=== PATIENT | male | born 1960 | race Caucasian/White ===

== ENCOUNTER 2020-07-14 11:07 | Outpatient (REF) | payer OTHER, SELFPAY ==
[2020-07-14 12:32] LABS: MANUAL DIFF FLAG NO
[2020-07-14 12:40] LABS: Basophils Percent Auto 0.4 % (0-2); Eosinophils Absolute Auto 0.1 X10*3/uL (0.0-0.4); Eosinophils Percent Auto 2.2 % (0-4); Hematocrit 44.6 % (42-52); Hemoglobin 15.2 g/dl (14.0-18.0); Lymphocytes Absolute Auto 1.8 X10*3/uL (1.2-4.9); Lymphocytes Percent Auto 33.6 % (20-40); Mean Corpuscular HGB Conc 34.1 g/dl (31.0-36.0); Mean Corpuscular Hemoglobin 31.1 pg (27.0-33.0); Mean Corpuscular Volume 91.2 fL (80-98); Monocytes Absolute Auto 0.4 X10*3/uL (0.1-1.2); Monocytes Percent Auto 7.5 % (2-11); Neutrophils Percent Auto 56.3 % (45-73); Platelet Count 160 X10*3/uL (160-400); Red Blood Count 4.89 X10*6/uL (4.60-5.80); White Blood Count 5.4 X10*3/uL (4.8-10.8)
[2020-07-14 13:34] LABS: Alanine Aminotransferase 22 U/L (0-40); Albumin Level 4.4 g/dL (3.5-5.0); Alkaline Phosphatase 77 U/L (39-117); Anion Gap 14 (12-20); Aspartate Amino Transferase 31 U/L (5-37); Bilirubin Total 2.4 mg/dL (0.0-1.0); Blood Urea Nitrogen 10 mg/dL (9-16); Calcium 9.5 mg/dL (8.4-10.2); Carbon Dioxide 30 mmol/L (22-29); Chloride 104 mmol/L (96-108); Cholesterol 132 mg/dL; Estimated Glomerular Filt Rate > 60; Glucose Random 109 mg/dL (60-115); HDL Cholesterol 48 mg/dL; LDL Cholesterol Calculated 69 mg/dl; Potassium 4.2 mmol/L (3.3-5.1); Sodium 144 mmol/L (135-145); Total Protein 7.8 g/dL (6.5-8.0); Triglycerides 75 mg/dL
[2020-07-14 13:36] LABS: Microalbum/Creatinine Ratio Ur 9.4 ug/mg cr
[2020-07-14 13:57] LABS: Free T4 (Free Thyroxine) 0.88 ng/dL (0.71-1.85); Prostate Specific Antigen Scr 0.31 ng/mL (<0.05-4.0); Thyroid Stimulating Hormone 1.14 uIU/mL (0.32-4.0)
== END 2020-07-14 11:08 | disposition home or self-care (01) ==
LOC: HO.LAB 11:07
PROVIDERS: PCP Internal Medicine; Visit Provider Internal Medicine
DX: E11.65 Type 2 diabetes mellitus with hyperglycemia (principal); I10 Essential (primary) hypertension; E78.00 Pure hypercholesterolemia, unspecified; Z12.5 Encounter for screening for malignant neoplasm of prostate
CPT/HCPCS: 36415; 80053; 80061; 82043; 84153; 84439; 84443; 85025

== ENCOUNTER → 2021-07-07 12:29 | Outpatient (REF) | payer OTHER, SELFPAY ==
--- NOTE | 2021-07-07 12:34 | CA_ITS ---
Transthoracic Echocardiogram Patient (Last, First, Middle): Justo Osborne R Gender: Male Date of : 1960 Age: 60 Procedure Date: 07/07/2021 Procedure Type: Transthoracic Echocardiogram Location: OP Height: 175.26 cm Weight: 88.45 kg BSA: 2.04 m2 Heart Rate: bpm BP: 150 / 88 mmHg Rewriter: LUIS Referring MD: Rashad Ellison MD Refresh Technician: Jermey Land MD Symptoms: I10 - Essential (primary) hypertension Study Quality: Fair/Contrast ECG Rhythm: Sinus Conclusions: - 1. Normal LV systolic function with grade 1 diastolic dysfunction 2. Mildly dilated left atrium 3. Mild pulmonic stenosis 4. Normal RV systolic pressure 5. No pericardial effusion Findings Procedure Information Contrast agent, definity, is being given per protocol without apparent complications. Left Ventricle Normal left ventricular size, thickness, and systolic function. The visually estimated ejection fraction is between 60-65%. Spectral Doppler is indicative of an impaired relaxation filling pattern. E/E prime ratio is <8, consistent with normal filling pressures. Evidence suggests grade I (mild) diastolic dysfunction. Right Ventricle Normal right ventricular cavity size and systolic function. Atria The left atrium is mildly dilated. There is no evidence of interatrial shunt. The right atrium is normal in size. Aortic Valve There is mild calcification of the aortic valve. There is no aortic valve stenosis. There is no aortic valve regurgitation. Mitral Valve There is mild anterior and posterior mitral leaflet thickening. There is mild mitral annular calcification. There is trace mitral valve regurgitation. There is no mitral valve stenosis. Pulmonic Valve The pulmonic valve was not well visualized. There is mild thickening of the pulmonic valve. There is no pulmonic valve regurgitation. Tricuspid Valve Likely normal tricuspid valve structure and function. There is mild tricuspid valve regurgitation. The right ventricular systolic pressure is normal. The right ventricular systolic pressure is 18 mmHg. Normal right atrial pressure. There is no evidence of pulmonary hypertension. Great Vessels All visible segments of the aorta are normal in size. The pulmonary artery was not well visualized. Venous The inferior vena cava is normal in size and collapses greater than 50% with inspiration. Pericardium/Pleural There is no evidence of pericardial effusion. Prior Study Comparison No prior study available for comparison. Measurements 2D Linear Measurements IVSd: 0.91 0.6-0.9/0.6-1.0 cm LVIDd: 4.88 3.9-5.3/4.2-5.9 cm LVIDd Index: 2.39 2.4-3.2/2.2-3.1 cm/m2 LVIDs: 2.71 2.0-3.6 cm LVPWd: 0.96 0.7-1.1 cm Ao Root: 2.90 2.1-3.5 cm LA Diam: 3.90 2.7-3.8/3.0-4.0 cm LAIDs Index: 1.91 1.5-2.3 cm/m2 LV Mass: 199.13 67-162/88-224 g LV Mass Index: 97.61 43-95/49-115 g/m2 LVOT Diam: 2.10 3.0+(-)1.3 cm 2D Systolic Function EF 4C: 66.40 >55% EF 2C: 64.50 >55% EF BiP: 65.40 >55% Mitral Valve MV Pk E: 0.65 MV PK A: 0.68 MV Decel Time: 237.00 E/A: 1.00 E'Lateral: 7.94 E'Medial: 7.29 E/E' Med: 9.00 E/E' Lat: 8.20 PHT: 70.00 MVA PHT: 3.14 Decel [place]: 2.75 Aortic Valve AoV Pk Onel: 1.59 AoV Mn Onel: 1.19 AoV VTI: 0.36 AoV Pk Grad: 10.00 Aov Mn Grad: 6.00 RANDY Cont.VTI: 2.73 LVOT LVOT Pk Onel: 1.23 LVOT Mn Onel: 0.82 LVOT VTI: 0.28 LVOT Pk Grad: 6.00 LVOT Mn Grad: 3.00 LVOT Diam: 2.10 LVOT Area: 3.46 Diastolic Function MV Pk E: 0.65 MV Pk A: 0.68 E/A: 1.00 E'Medial: 7.29 E/E' Med: 9.00 E' Laterial: 7.94 E/E' Lat: 8.20 Right Ventricle TAPSE (mm): 2.23 TVS' Onel: 12.70 Tricuspid Valve TR Pk Onel: 1.91 TR Pk Grad: 15.00 RA Press: 3.00 RVSP: 18.00 Great Vessels Aorta Ao Root-2D: 2.90 2.0-3.7 cm Ao Asc: 3.60 2.1-3.4 cm Ao Arch: 2.50 Pulmonary Valve PV Pk Onel: 2.24 PV Min Onel: 1.36 Peak PV Grad: 20.00 PV Mn Grad: 9.00 Shunting QP:QS: 0.80 Updated in Other Vendor System with Status of Final Jeremy Land MD electronically signed on 07/07/2021 5:38:47 PM with status of Final
== END | disposition home or self-care (01) ==
LOC: HO.CARD 12:29
PROVIDERS: PCP Internal Medicine; Visit Provider Internal Medicine
DX: I10 Essential (primary) hypertension (principal); G47.33 Obstructive sleep apnea (adult) (pediatric)
CPT/HCPCS: 93306; Q9957

== ENCOUNTER 2021-08-04 10:55 | Outpatient (REF) | payer OTHER, SELFPAY ==
[2021-08-04 11:14] LABS: MANUAL DIFF FLAG NO
[2021-08-04 11:38] LABS: Basophils Percent Auto 0.4 % (0-2); Eosinophils Absolute Auto 0.2 X10*3/uL (0.0-0.4); Eosinophils Percent Auto 3.4 % (0-4); Hematocrit 42.7 % (42.0-52.0); Hemoglobin 14.9 g/dl (14.0-18.0); Imm Gran Abs Auto 0.01 X10*3/uL (0.00-0.03); Imm Gran Pct Auto 0.2 % (0.0-0.4); Lymphocytes Absolute Auto 1.6 X10*3/uL (1.2-4.9); Lymphocytes Percent Auto 29.2 % (20-40); Mean Corpuscular HGB Conc 34.9 g/dl (31.0-36.0); Mean Corpuscular Hemoglobin 32.3 pg (27.0-33.0); Mean Corpuscular Volume 92.4 fL (80.0-98.0); Mean Platelet Volume 10.5 fL (9.4-12.4); Monocytes Absolute Auto 0.4 X10*3/uL (0.1-1.2); Monocytes Percent Auto 7.7 % (2-11); Neutrophils Absolute Auto 3.1 x10*3/uL (2.0-8.3); Neutrophils Percent Auto 59.1 % (45-73); Platelet Count 156 X10*3/uL (160-400); Red Blood Count 4.62 X10*6/uL (4.60-5.80); Red Cell Distribution Width 12.4 % (11.0-16.0); White Blood Count 5.3 X10*3/uL (4.8-10.8)
[2021-08-04 12:02] LABS: Estimated Average Glucose 120 mg/dL; Hemoglobin A1c % 5.8 %
[2021-08-04 12:07] LABS: Alanine Aminotransferase 31 U/L (0-40); Albumin Level 4.3 g/dL (3.5-5.0); Alkaline Phosphatase 71 U/L (39-117); Anion Gap 12 (12-20); Aspartate Amino Transferase 30 U/L (5-37); Bilirubin Total 2.7 mg/dL (0.0-1.0); Blood Urea Nitrogen 9 mg/dL (9-16); Calcium 9.8 mg/dL (8.4-10.2); Carbon Dioxide 30 mmol/L (22-29); Chloride 104 mmol/L (96-108); Cholesterol 124 mg/dL; Estimated Glomerular Filt Rate > 60; Glucose Random 117 mg/dL (60-115); HDL Cholesterol 41 mg/dL; LDL Cholesterol Calculated 67 mg/dl; Potassium 3.7 mmol/L (3.3-5.1); Sodium 142 mmol/L (135-145); Total Protein 7.3 g/dL (6.5-8.0); Triglycerides 84 mg/dL
[2021-08-04 12:19] LABS: Free T4 (Free Thyroxine) 0.94 ng/dL (0.71-1.85); Prostate Specific Antigen Scr 0.87 ng/mL (<0.05-4.0); Thyroid Stimulating Hormone 0.85 uIU/mL (0.32-4.0)
[2021-08-04 12:49] LABS: Folate 17.1 ng/mL (> or = 4.0); Vitamin B12 796 pg/mL (200-900)
[2021-08-04 12:50] LABS: Creatinine Urine 292.85 mg/dL; Microalbum/Creatinine Ratio Ur 12.6 ug/mg cr
== END 2021-08-04 10:56 | disposition home or self-care (01) ==
LOC: HO.LAB 10:55
PROVIDERS: PCP Internal Medicine; Visit Provider Internal Medicine
DX: Z12.5 Encounter for screening for malignant neoplasm of prostate (principal); E11.65 Type 2 diabetes mellitus with hyperglycemia; E78.00 Pure hypercholesterolemia, unspecified
CPT/HCPCS: 36415; 80053; 80061; 82043; 82607; 82746; 83036; 84153; 84439; 84443; 85025

== ENCOUNTER 2021-10-19 12:11 | Outpatient (REF) | payer OTHER, SELFPAY ==
[2021-10-19 13:14] LABS: Hematocrit 43.5 % (42.0-52.0); Hemoglobin 15.1 g/dl (14.0-18.0); Mean Corpuscular HGB Conc 34.7 g/dl (31.0-36.0); Mean Corpuscular Hemoglobin 31.7 pg (27.0-33.0); Mean Corpuscular Volume 91.2 fL (80.0-98.0); Platelet Count 155 X10*3/uL (160-400); Red Blood Count 4.77 X10*6/uL (4.60-5.80); Red Cell Distribution Width 13.8 % (11.0-16.0); White Blood Count 5.1 X10*3/uL (4.8-10.8)
[2021-10-19 13:15] LABS: INTERNATIONAL NORM RATIO 1.2 (0.9-1.1); Prothrombin Time 13.5 SEC (9.9-13.0)
[2021-10-19 13:48] LABS: Alanine Aminotransferase 33 U/L (0-40); Albumin Level 4.4 g/dL (3.5-5.0); Alkaline Phosphatase 72 U/L (39-117); Aspartate Amino Transferase 36 U/L (5-37); Bilirubin Direct 0.7 mg/dL (0.0-0.5); Bilirubin Total 1.8 mg/dL (0.0-1.0); Total Protein 7.6 g/dL (6.5-8.0)
== END 2021-10-19 12:12 | disposition home or self-care (01) ==
LOC: HO.LAB 12:11
PROVIDERS: PCP Internal Medicine; Visit Provider Internal Medicine Gastroenterology
DX: K74.60 Unspecified cirrhosis of liver (principal)
CPT/HCPCS: 36415; 80076; 85027; 85610

== ENCOUNTER 2021-10-28 10:38 | Day surgery (SDC) | payer OTHER, SELFPAY ==
[2021-10-24 13:31] VITALS: BMI 33.1
--- NOTE | 2021-10-26 12:08 | HO.ANESPROP2 ---
Documented by User: Bette Gallo NP 10/26/21 12:12 HPI - Anesthesia Eval Consult details Narrative: 61yo M for Upper Endoscopy and Colonoscopy [facility] Active Problems Active Problems: All Active Problems (Updated 10/24/21 @ 13:33 by Yumiko Carver RN) Annual physical exam (Acute) Obstructive sleep apnea (Acute) Hypertension (Acute) Hypercholesterolemia (Acute) Obesity (BMI 30-39.9) (Acute) Type 2 diabetes mellitus with hyperglycemia (Acute) Past Medical History Medical History Alcohol abuse Cholelithiasis Cirrhosis Fatty liver Hypercholesterolemia Hypertension Obesity (BMI 30-39.9) Obstructive sleep apnea Type 2 diabetes mellitus with hyperglycemia Family History Family History (Updated 05/03/21 @ 15:11 by Rashad Ellison MD) Father Gastric cancer Mother Intestinal cancer Paternal Aunt Glioma Paternal Grandmother Liver cancer Surgical History Surgical History H/O colonoscopy History of cholecystectomy History of inguinal hernia repair History of tooth extraction Social History Social History (Updated 05/03/21 @ 15:12 by Rashad Ellison MD) Housing: House Alcohol intake: current Patient Tobacco Use Status: Former Tobacco user Quit Date: 1996 Tobacco use type: Cigarette Years Smoked: quit 1992 e-Cigarette/Vaping Use: Never Used Second Hand Smoke Exposure: No Use of substances other than those prescribed or required for medical reasons: Yes Substance Use Frequency: Daily Are you DNR?: No Advance Directives: No Advance Directives Information Provided: Yes Current occupational status: employed Meds Allergies Allergy/AdvReac Type Severity Reaction Status Date / Time amlodipine [AMLODIPINE] Allergy Intermediate SWELLING Verified 10/28/21 11:25 lisinopril [LISINOPRIL] AdvReac Intermediate Cough Verified 10/28/21 11:25 Home Medications Medication Instructions Recorded Confirmed Last Taken Type aspirin 81 mg tablet,delayed 81 mg PO DAILY 04/16/20 10/24/21 10/20/21 History release (Adult Aspirin Regimen) cholecalciferol (vitamin D3) 50 50 mcg PO DAILY 04/16/20 10/24/21 Unknown History mcg (2,000 unit) capsule multivitamin 1 tab PO DAILY 04/16/20 10/24/21 Unknown History Exam Exam Date and Time: October 26, 2021 1208 Height,Weight and Vital Signs: Height 5 ft 9 in Weight 101.831 kg Pertinent Lab Results Pertinent Lab Results: Laboratory Tests 08/04/21 10/19/21 11:12 12:25 WBC 5.1 Hgb 15.1 Hct 43.5 Plt Count 155 L Sodium 142 Potassium 3.7 Chloride 104 Carbon Dioxide 30 H BUN 9 Creatinine 0.78 Narrative Narrative: ECHO 06/2021 Conclusions: - 1.? Normal LV systolic function with grade 1 diastolic ? dysfunction? 2. Mildly dilated left atrium? 3. Mild pulmonic stenosis? 4.? Normal RV systolic pressure? 5. No pericardial effusion ? ? ? Assessment and Plan Assessment Anesthesia Assessment: Chart Reviewed Documented by User: Janna Torres MD 10/28/21 12:19 PMFSH Past Medical History Medical History Alcohol abuse Cholelithiasis Cirrhosis Fatty liver Hypercholesterolemia Hypertension Obesity (BMI 30-39.9) Obstructive sleep apnea Type 2 diabetes mellitus with hyperglycemia Family History Family History (Updated 05/03/21 @ 15:11 by Rashad Ellison MD) Father Gastric cancer Mother Intestinal cancer Paternal Aunt Glioma Paternal Grandmother Liver cancer Family history of problems with anesthesia: No Surgical History Surgical History H/O colonoscopy History of cholecystectomy History of inguinal hernia repair History of tooth extraction History of Problems with Anesthesia: No Social History Social History (Updated 05/03/21 @ 15:12 by Rashad Ellison MD) Housing: House Alcohol intake: current Patient Tobacco Use Status: Former Tobacco user Quit Date: 1996 Tobacco use type: Cigarette Years Smoked: quit 1992 e-Cigarette/Vaping Use: Never Used Second Hand Smoke Exposure: No Use of substances other than those prescribed or required for medical reasons: Yes Substance Use Frequency: Daily Are you DNR?: No Advance Directives: No Advance Directives Information Provided: Yes Current occupational status: employed Meds Allergies Allergy/AdvReac Type Severity Reaction Status Date / Time amlodipine [AMLODIPINE] Allergy Intermediate SWELLING Verified 10/28/21 11:25 lisinopril [LISINOPRIL] AdvReac Intermediate Cough Verified 10/28/21 11:25 Home Medications Medication Instructions Recorded Confirmed Last Taken Type aspirin 81 mg tablet,delayed 81 mg PO DAILY 04/16/20 10/24/21 10/20/21 History release (Adult Aspirin Regimen) cholecalciferol (vitamin D3) 50 50 mcg PO DAILY 04/16/20 10/24/21 Unknown History mcg (2,000 unit) capsule multivitamin 1 tab PO DAILY 04/16/20 10/24/21 Unknown History Exam Airway Mallampati Class: II TM Dist: >3cm Neck ROM: Full Denture: Upper Heart: rrr Lungs: cta Assessment and Plan Assessment Anesthesia Assessment: Anesthesia Plan Discussed and Chart Reviewed Final Anesthetic Review Family History of Problems with Anesthesia: No History of Problems with Anesthesia: No NPO: Yes ASA Class: III Final Preanesthetic Review: No Changes in Pt Med Stat, Meds/Allgs Chart Reviewed and Consent Obtained/Reviewed Patient Risk: Intermediate Procedure Risk: Intermediate Anesthetic Plan Anesthetic Plan: MAC: Disposition: Standard PACU
[2021-10-28 11:27] VITALS: BP 136/71; PULSE 61; RESP 16; TEMP 36.7; O2SAT 96
[2021-10-28 11:27] LABS: Glucose, Whole Blood 91 mg/dL (60-115)
[2021-10-28] MEDS: Lactated Ringers 1,000 ML 100 ML IVCONT (11:45)
--- NOTE | 2021-10-28 12:23 | MHC.SHP ---
Pre-Procedural Eval Section A Date of Service: 10/28/21 The patient is an INPATIENT: No Changes since office visit: No Cold of Flu in the past 2 weeks, No New Medical Problems, No Changes in Medication and No Patient answered all questions The History & Physical has been completed within 30 days and I have reviewed it.: Yes Section B Chief Complaint: screening,cirrhosis of liver Allergies: Allergies Allergy/AdvReac Type Severity Reaction Status Date / Time amlodipine [AMLODIPINE] Allergy Intermediate SWELLING Verified 10/28/21 11:25 lisinopril [LISINOPRIL] AdvReac Intermediate Cough Verified 10/28/21 11:25 Plan I have reviewed the history and physical and performed a pertinent physical examination on my patient. No changes have occurred unless specified.
[2021-10-28 13:20] VITALS: BP 110/59; PULSE 54; RESP 12; TEMP 36.2; O2SAT 99
--- NOTE | 2021-10-28 13:24 | P.BOP_ITS ---
Brief Operative Note Date of Service: 10/28/21 Pre-op diagnosis: cirrhosis,screening Post-op diagnosis: same (colon polyps) Procedure: egd,colon Surgeon: Tony Olmstead Anesthesia: MAC Was an Assault Boat Coxswain used for this Procedure?: No Estimated blood loss (mL): 5 Pathology: other Condition: stable Disposition: PACU
[2021-10-28 13:35] VITALS: BP 119/65; PULSE 65; RESP 18; O2SAT 97
[2021-10-28 13:50] VITALS: BP 140/77; PULSE 67; RESP 18; TEMP 36.7; O2SAT 98
--- NOTE | 2021-10-28 21:56 | OP_ITS ---
SURGEON: Tony Olmstead MD INDICATIONS: 1. Cirrhosis. 2. Colon cancer screening. PREOPERATIVE DIAGNOSIS: POSTOPERATIVE DIAGNOSIS: PROCEDURE PERFORMED: Upper endoscopy with biopsy, colonoscopy to the terminal ileum with biopsy and snare polypectomy. ESTIMATED BLOOD LOSS: COMPLICATIONS: ANESTHESIA: ASSISTANTS: SPECIMENS: MEDICATIONS: Monitored anesthesia care. DESCRIPTION OF PROCEDURE: History and physical were performed. The risks and benefits of the procedure were explained to the patient. Informed consent was obtained. The patient was placed in the left lateral decubitus position. The Olympus video gastroscope was introduced into the esophagus, stomach, and duodenum. Examination was performed. The scope was removed. He was repositioned for colonoscopy. Digital rectal exam was performed and was found to be normal. The Olympus pediatric video colonoscope was introduced into the rectum and advanced to the cecum without difficulty. The cecum was identified by transillumination, palpation, and identification of ileocecal valve. Examination was performed. The scope was removed. He tolerated both procedures well and was returned to recovery area in stable condition. FINDINGS: UPPER ENDOSCOPY: Esophagus: The esophagus was normal. There were no varices. There was no esophagitis. Stomach: The stomach showed no evidence of masses, ulcers, or polyps. There was no portal hypertensive gastropathy for gastric varices. On retroflex view antral biopsies were obtained to evaluate for H pylori. Duodenum: The bulb and second portion were normal. COLONOSCOPY: The terminal ileum was examined and appeared normal. The visualized mucosa was within normal limits without evidence of masses or ulcers. Two polyps were identified and removed. The 1st in the cecum measured 5 mm and was removed with biopsy forceps. The 2nd at 40 cm was 10 mm was removed with a snare. No other polyps were identified. There was mild sigmoid diverticulosis. Retroflexed examination was normal. IMPRESSION: 1. Normal upper endoscopy. 2. Colon polyps. RECOMMENDATION: Follow up the biopsy results. MD TADEO Delgado/MODL / [id number]
== END 2021-10-28 14:35 | disposition home or self-care (01) ==
PROVIDERS: PCP Internal Medicine; Visit Provider Internal Medicine Gastroenterology
PROC: (CPT 45385; principal; 2021-10-28 11:20)
DX: Z12.11 Encounter for screening for malignant neoplasm of colon (principal); Z83.71 Family history of colonic polyps; D12.0 Benign neoplasm of cecum; D12.5 Benign neoplasm of sigmoid colon; K74.60 Unspecified cirrhosis of liver; Z80.0 Family history of malignant neoplasm of digestive organs; I10 Essential (primary) hypertension; E78.00 Pure hypercholesterolemia, unspecified; E11.65 Type 2 diabetes mellitus with hyperglycemia; G47.33 Obstructive sleep apnea (adult) (pediatric); Z79.82 Long term (current) use of aspirin; Z79.899 Other long term (current) drug therapy; Z88.8 Allergy status to other drugs, medicaments and biological substances; Z87.891 Personal history of nicotine dependence; Z90.49 Acquired absence of other specified parts of digestive tract
CPT/HCPCS: 45385; 45380; 43239; 82947; 88305; 88342

== ENCOUNTER 2023-01-10 10:50 | Outpatient (REF) | payer OTHER, SELFPAY ==
[2023-01-10 11:06] LABS: MANUAL DIFF FLAG NO
[2023-01-10 11:51] LABS: Basophils Percent Auto 0.4 % (0-2); Eosinophils Absolute Auto 0.2 X10*3/uL (0.0-0.4); Eosinophils Percent Auto 2.7 % (0-4); Hematocrit 42.7 % (42.0-52.0); Hemoglobin 14.6 g/dl (14.0-18.0); Imm Gran Abs Auto 0.02 X10*3/uL (0.00-0.03); Imm Gran Pct Auto 0.3 % (0.0-0.4); Lymphocytes Absolute Auto 1.6 X10*3/uL (1.2-4.9); Lymphocytes Percent Auto 21.3 % (20-40); Mean Corpuscular HGB Conc 34.2 g/dl (31.0-36.0); Mean Corpuscular Hemoglobin 30.5 pg (27.0-33.0); Mean Corpuscular Volume 89.1 fL (80.0-98.0); Mean Platelet Volume 10.7 fL (9.4-12.4); Monocytes Absolute Auto 0.5 X10*3/uL (0.1-1.2); Monocytes Percent Auto 6.3 % (2-11); Platelet Count 163 X10*3/uL (160-400); Red Blood Count 4.79 X10*6/uL (4.60-5.80); Red Cell Distribution Width 13.5 % (11.0-16.0); White Blood Count 7.3 X10*3/uL (4.8-10.8)
[2023-01-10 12:01] LABS: Estimated Average Glucose 114 mg/dL; Hemoglobin A1c % 5.6 %
[2023-01-10 12:21] LABS: Creatinine Urine 125.18 mg/dL; Microalbum/Creatinine Ratio Ur 15.9 ug/mg cr
[2023-01-10 12:35] LABS: Alanine Aminotransferase 20 U/L (0-40); Albumin Level 4.1 g/dL (3.5-5.0); Alkaline Phosphatase 65 U/L (39-117); Anion Gap 15 (12-20); Aspartate Amino Transferase 20 U/L (5-37); Bilirubin Total 1.7 mg/dL (0.0-1.0); Blood Urea Nitrogen 6 mg/dL (9-16); Calcium 9.5 mg/dL (8.4-10.2); Carbon Dioxide 24 mmol/L (22-29); Chloride 108 mmol/L (96-108); Cholesterol 164 mg/dL; Estimated Glomerular Filt Rate > 60; Glucose Fasting 124 mg/dL (60-99); HDL Cholesterol 46 mg/dL; LDL Cholesterol Calculated 95 mg/dl; Potassium 3.8 mmol/L (3.3-5.1); Sodium 143 mmol/L (135-145); Total Protein 7.1 g/dL (6.5-8.0); Triglycerides 116 mg/dL
[2023-01-10 12:42] LABS: TSH reflex Free T4 1.47 uIU/mL (0.32-4.0); Vitamin D 25-OH Total 28.1 ng/mL (>30)
[2023-01-10 13:12] LABS: Folate 17.1 ng/mL (> or = 4.0); Prostate Specific Antigen 0.58 ng/mL (<0.05-4.0); Vitamin B12 831 pg/mL (200-900)
== END 2023-01-10 10:51 | disposition home or self-care (01) ==
LOC: HO.LAB 10:50
PROVIDERS: PCP Internal Medicine; Visit Provider Nurse Practitioner Family
DX: Z00.00 Encounter for general adult medical examination without abnormal findings (principal); E11.65 Type 2 diabetes mellitus with hyperglycemia; E78.00 Pure hypercholesterolemia, unspecified; Z12.5 Encounter for screening for malignant neoplasm of prostate; E55.9 Vitamin D deficiency, unspecified
CPT/HCPCS: 36415; 80053; 80061; 82043; 82306; 82607; 82746; 83036; 84153; 84443; 85025

== ENCOUNTER 2023-01-15 10:25 | Outpatient (AMB) | payer OTHER, SELFPAY ==
[2023-01-15 10:43] VITALS: BP 152/88; PULSE 83; O2SAT 98; BMI 31.6
--- NOTE | 2023-01-15 10:43 | MHC.PC.OV ---
Vital Signs 01/15/23 10:43 Height 5 ft 9 in Weight 214 lb BMI 31.6 BP 152/88 H Blood Pressure Location Lt brachial Position Sitting Pulse 83 Pulse Source Pulse Oximeter Pulse Oximetry (%) 98 Oxygen Delivery Method Room Air Intake Visit Reasons: F/U Allergies amlodipine [AMLODIPINE] Allergy (Intermediate, Verified 01/15/23 10:44) SWELLING lisinopril [LISINOPRIL] Adverse Reaction (Intermediate, Verified 01/15/23 10:44) Cough Medication List - Last Reconciled 01/15/23 by Rashad Ellison MD hydrochlorothiazide 25 mg PO DAILY 90 days metoprolol succinate ER 100 mg PO DAILY multivitamin 1 tab PO DAILY simvastatin 40 mg PO QPM Tobacco use date assessed: 07/20/22 Dental Screening Dental Screen Date: 01/15/23 Did you have a dental visit in the last 12 months?: Yes Did you have a dental problem in the last 6 months where you did not have access to dental care?: No Was dental information given to patient?: Patient has dentist HPI F/U HPI Details 62-year-old obese male with diabetes mellitus hypertension hypercholesterolemia last seen in August 2021. Patient is up-to-date with colonoscopy. Patient does follow-up with the nurse practitioner and was last seen in July for physical exam [facility] Medical History (Updated 01/15/23 @ 11:21 by Rashad Ellison MD) Alcohol abuse Cholelithiasis Cirrhosis Fatty liver Hypercholesterolemia Hypertension Obesity (BMI 30-39.9) Obstructive sleep apnea Type 2 diabetes mellitus with hyperglycemia Surgical History (Updated 07/20/22 @ 16:16 by LINUS Corbett) H/O colonoscopy History of cholecystectomy History of inguinal hernia repair History of tooth extraction Family History (Updated 01/15/23 @ 10:44 by Karely Pink CMA) Father Gastric cancer Mother Intestinal cancer Paternal Aunt Glioma Paternal Grandmother Liver cancer Social History Housing: House Alcohol intake: current Patient Tobacco Use Status: Former Tobacco user Quit Date: 1996 Tobacco use type: Cigarette Years Smoked: quit 1992 e-Cigarette/Vaping Use: Never Used Second Hand Smoke Exposure: No Current occupational status: employed Cognitive needs: No Hearing needs: No Vision needs: No Questionnaire PHQ-9 Over the last 2 weeks, how often have you been bothered by any of the following problems? 1. Little interest or pleasure in doing things: not at all 2. Feeling down, depressed, or hopeless: not at all 3. Trouble falling or staying asleep, or sleeping too much: not at all 4. Feeling tired or having little energy: not at all 5. Poor appetite or overeating: not at all 6. Feeling bad about yourself - or that you are a failure or have let yourself or your family down: not at all 7. Trouble concentrating on things, such as reading the newspaper or watching television: not at all 8. Moving or speaking so slowly that other people could have noticed. Or the opposite - being so fidgety or restless that you have been moving around a lot more than usual: not at all 9. Thoughts that you would be better off or of hurting yourself in some way: not at all Total score: 0 Depression Screening Interpretation: Negative 35698 - PHQ-9 Billing: Yes Source: Developed by Drs. Nikunj Ramon, Simin Morgan, Yung Ha and colleagues, with an educational mustapha from [employer]. Thrive Questionnaire Date Thrive assessed: 07/20/22 AUDIT C Alcohol Use Questionnaire (AUDIT-C) 1. How often do you have a drink containing alcohol?: Never 2. How many drinks containing alcohol do you have on a typical day when you are drinking?: 1 or 2 3. How often do you have six or more drinks on one occasion?: Never Total Score: 0 Score Reviewed/Action Taken: No MOSHE-7 AMB Questionnaire MOSHE-7 Date MOSHE - 7 assessed: 07/20/22 Source: Developed by Drs. Nikunj Ramon, Simin Morgan, Yung Ha and colleagues, with an educational mustapha from [employer]. Physical exam (Primary Care) Vital Signs: Last Vital Signs Pulse 83 01/15/23 10:43 BP 152/88 H 01/15/23 10:43 Pulse Ox 98 01/15/23 10:43 Oxygen Delivery Method Room Air 01/15/23 10:43 BMI result Body Mass Index 31.6 Tobacco/Smoking Status: Tobacco use Status Tobacco use date assessed 07/20/22 01/15/23 10:48 Patient Tobacco Use Status Former Tobacco user 01/15/23 10:48 Tobacco use type Cigarette 01/15/23 10:48 e-Cigarette/Vaping Use Never Used 01/15/23 10:48 PHQ-9: PHQ-9 Score PHQ-9: Total score 0 01/15/23 11:09 Depression Screening Interpretation: Negative Thrive Assessment: Date of Thrive Assessment Date Thrive assessed 07/20/22 01/15/23 10:48 Const General: alert; No acute distress Eyes Conjunctivae: conjunctivae normal Resp Auscultation: clear to auscultation bilaterally Cardio Rate: regular rate Rhythm: regular rhythm GI Inspection: Yes normal to inspection Extrem General: Yes normal to inspection and No edema Assessment and Plan Assessment & Plan (1) Type 2 diabetes mellitus with hyperglycemia: Comment: reminded eye exam Dr. Wheeler Code(s): E11.65 - Type 2 diabetes mellitus with hyperglycemia Qualifiers: Diabetes mellitus correction insulin use: without director long term care use Qualified Code(s): E11.65 - Type 2 diabetes mellitus with hyperglycemia Plan: Decrease the amount of carbohydrate intake, pasta, bread, rice and potatoes are all sugar and that is aside from all the sweet stuff, remember that fruits are good but they are Sweet also. Hemoglobin A1c goal of less than 6.5 patient is diet controlled. Reminded about the exam (2) Obesity (BMI 30-39.9): Code(s): E66.9 - Obesity, unspecified Plan: Diet and exercise (3) Hypercholesterolemia: Code(s): E78.00 - Pure hypercholesterolemia, unspecified Plan: Avoid fried foods, chicken skin, eggs, butter margarine, pastries and meat. Be it pork or beef they have a lot of cholesterol patient is on simvastatin 40 mg at bedtime LDL goal of less than 100 and triglyceride of less than 150 (4) Hypertension: Code(s): I10 - Essential (primary) hypertension Qualifiers: Hypertension type: essential hypertension Qualified Code(s): I10 - Essential (primary) hypertension Plan: Continue with blood pressure medication. Decrease salt intake and exercise patient is on metoprolol 100 mg once a day and hydrochlorothiazide 25 mg once a day. Concern about elevated blood pressure today advised to monitor and will follow-up in 3 month Coding Level of Care Code Est Pt Level 4 (87311) Diagnoses Type 2 diabetes mellitus with hyperglycemia E11.65 Diabetes mellitus director long term care insulin use: without correction use Obesity (BMI 30-39.9) E66.9 Hypercholesterolemia E78.00 Hypertension I10 Hypertension type: essential hypertension
== END 2023-01-15 11:36 | disposition home or self-care (01) ==
PROVIDERS: PCP Internal Medicine; Visit Provider Internal Medicine
DX: E11.65 Type 2 diabetes mellitus with hyperglycemia (principal); E66.9 Obesity, unspecified; Z68.31 Body mass index [BMI] 31.0-31.9, adult; Z23 Encounter for immunization; I10 Essential (primary) hypertension; E78.00 Pure hypercholesterolemia, unspecified
CPT/HCPCS: 90471; 90714; 99214

== ENCOUNTER 2023-04-23 11:01 | Outpatient (AMB) | payer OTHER, SELFPAY ==
--- NOTE | 2023-04-23 11:20 | A.OFFPC_ITS ---
Vital Signs 04/23/23 11:21 Height 5 ft 9 in Weight 205 lb 8 oz BMI 30.3 BP 148/72 H Blood Pressure Location Lt brachial Position Sitting Respiration 17 Pulse 62 Pulse Source Pulse Oximeter Pulse Oximetry (%) 98 Oxygen Delivery Method Room Air Intake Visit Reasons: HTN, DM Intake Note: Pt here for HTN and DMII F/U. 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 Accompanied by: Self / Same As Patient Allergies amlodipine [AMLODIPINE] Allergy (Intermediate, Verified 04/23/23 11:24) SWELLING lisinopril [LISINOPRIL] Adverse Reaction (Intermediate, Verified 04/23/23 11:24) Cough Medication List - Last Reconciled 04/23/23 by Rashad Ellison MD cholecalciferol (vitamin D3) 25 mcg PO DAILY losartan-hydrochlorothiazide 50-12.5 mg 1 tab PO DAILY metoprolol succinate ER 100 mg PO DAILY multivitamin 1 tab PO DAILY simvastatin 40 mg PO QPM Tobacco use date assessed: 07/20/22 Dental Screening Dental Screen Date: 04/23/23 Did you have a dental visit in the last 12 months?: Yes Did you have a dental problem in the last 6 months where you did not have access to dental care?: No Was dental information given to patient?: Patient has dentist HPI HTN, DM HPI Details 62-year-old obese male with controlled d iabetes mellitus hypercholest erolemia hypertension last seen in January 2023. Patient's colonoscopy is up-to-date. [facility] Medical History (Updated 01/18/23 @ 13:18 by LINUS Corbett) Cirrhosis Cholelithiasis Obstructive sleep apnea Hypertension Hypercholesterolemia Obesity (BMI 30-39.9) Fatty liver Alcohol abuse Type 2 diabetes mellitus with hyperglycemia Surgical History H/O colonoscopy History of cholecystectomy History of tooth extraction History of inguinal hernia repair Family History Father Gastric cancer Mother Intestinal cancer Paternal Aunt Glioma Paternal Grandmother Liver cancer Social History Housing: House Alcohol intake: current Patient Tobacco Use Status: Former Tobacco user Quit Date: 1996 Tobacco use type: Cigarette Years Smoked: quit 1992 e-Cigarette/Vaping Use: Never Used Second Hand Smoke Exposure: No Current occupational status: employed Cognitive needs: No Hearing needs: No Vision needs: No Questionnaire Thrive Questionnaire Date Thrive assessed: 07/20/22 MOSHE-7 AMB Questionnaire MOSHE-7 Date MOSHE - 7 assessed: 07/20/22 Source: Developed by Drs. Nikunj Ramon, Simin Morgan, Yung Ha and colleagues, with an educational mustapha from [email or web address]. Physical exam (Primary Care) Vital Signs: Last Vital Signs Pulse 62 04/23/23 11:21 Resp 17 04/23/23 11:21 BP 148/72 H 04/23/23 11:21 Pulse Ox 98 04/23/23 11:21 Oxygen Delivery Method Room Air 04/23/23 11:21 BMI result Body Mass Index 30.3 Tobacco/Smoking Status: Tobacco use Status Tobacco use date assessed 07/20/22 04/23/23 11:23 Patient Tobacco Use Status Former Tobacco user 04/23/23 11:23 Tobacco use type Cigarette 04/23/23 11:23 e-Cigarette/Vaping Use Never Used 04/23/23 11:23 Thrive Assessment: Date of Thrive Assessment Date Thrive assessed 07/20/22 04/23/23 11:23 Const General: alert; No acute distress Eyes Conjunctivae: conjunctivae normal Resp Auscultation: clear to auscultation bilaterally Cardio Rate: regular rate Rhythm: regular rhythm GI Inspection: Yes normal to inspection Extrem General: Yes normal to inspection and No edema Office Procedures Flu Questionnaire Does the patient have a severe egg allergy?: No Does the patient have severe life threatening allergies?: No Does the patient have a fever or illness today?: No Has the patient ever had Guillain-Fargo Syndrome?: No Has the patient ever had any past reaction to a flu shot?: No Results AMB Hemoglobin A1c AMB Hemoglobin A1c 5.9 % Last Edit by NEDA Michael on 04/23/23 11:33 Immunizations flu vacc [id number] 6mos up(PF) 60 mcg(15 mcgx4)/0.5 mL IM syringe Performing Provider: Rashad Ellison MD Performing Location: [facility] Administered by: NEDA Michael on 04/23/23 11:30 Dose Route Admin Location Dispensed Lot Number Expiration Date NDC Humane Agent 0.5 mL IM Left Deltoid 0.5 mL [id number] 12/09/23 [id number] [employer] VIS Given Date VIS Provided VIS Publication Date 04/23/23 Single Vaccine 21 Eligibility Eligibility Date Funding Source Not VFC Eligible 04/23/23 Private Results Reviewed Results Reviewed: Laboratory Last Values Hgb A1c (Clinic) 5.9 % (4.0-6.0) 04/23/23 11:32 Assessment and Plan Assessment & Plan (1) Type 2 diabetes mellitus with hyperglycemia: Comment: reminded eye exam Dr. Wheeler Code(s): E11.65 - Type 2 diabetes mellitus with hyperglycemia Qualifiers: Diabetes mellitus freight breaker insulin use: without prison use Qualified Code(s): E11.65 - Type 2 diabetes mellitus with hyperglycemia Plan: Decrease the amount of carbohydrate intake, pasta, bread, rice and potatoes are all sugar and that is aside from all the sweet stuff, remember that fruits are good but they are Sweet also. Hemoglobin A1c goal of less than 6.5. Patient is diet controlled (2) Obesity (BMI 30-39.9): Code(s): E66.9 - Obesity, unspecified Plan: Diet and exercise noted weight loss (3) Hypercholesterolemia: Code(s): E78.00 - Pure hypercholesterolemia, unspecified Plan: Avoid fried foods, chicken skin, eggs, butter margarine, pastries and meat. Be it pork or beef they have a lot of cholesterol LDL goal of less than 100 and triglyceride of less than 150. Patient on simvastatin 40 mg once a day (4) Hypertension: Code(s): I10 - Essential (primary) hypertension Qualifiers: Hypertension type: essential hypertension Qualified Code(s): I10 - Essential (primary) hypertension Plan: Continue with blood pressure medication. Decrease salt intake and exercise patient takes metoprolol 100 mg once a day hydrochlorothiazide 25 mg once a day Orders: Orders AMB Hemoglobin A1c Today E11.65 - Type 2 diabetes mellitus with hyperglycemia Influenza [id number] Immunization Today Z23 - Encounter for immunization Medications: New losartan-hydrochlorothiazide 50-12.5 mg 1 tab PO DAILY 30 tabs 3RF I10 - Essential (primary) hypertension Discontinued hydrochlorothiazide Discontinued Reason: Doctor's Order 25 mg PO DAILY 90 days 90 tabs 3RF I10 - Essential (primary) hypertension Coding Level of Care Code Est Pt Level 4 (32715) Diagnoses Type 2 diabetes mellitus with hyperglycemia, without long-term current use of insulin E11.65 Diabetes mellitus freight breaker insulin use: without prison use Obesity (BMI 30-39.9) E66.9 Hypercholesterolemia E78.00 Essential hypertension I10 Hypertension type: essential hypertension
[2023-04-23 11:21] VITALS: BP 148/72; PULSE 62; RESP 17; O2SAT 98; BMI 30.3
== END 2023-04-23 12:12 | disposition home or self-care (01) ==
PROVIDERS: PCP Internal Medicine; Visit Provider Internal Medicine
DX: E11.65 Type 2 diabetes mellitus with hyperglycemia (principal); Z23 Encounter for immunization
CPT/HCPCS: 83036; 90471; 90686; 99214

== ENCOUNTER 2023-07-19 09:27 | Outpatient (AMB) | payer OTHER, SELFPAY ==
--- NOTE | 2023-07-19 09:47 | A.OFFPC_ITS ---
Vital Signs 07/19/23 09:48 07/19/23 10:17 Height 5 ft 9 in Weight 207 lb BMI 30.6 BP 160/92 H 158/80 H Blood Pressure Location Lt brachial Lt brachial Position Sitting Sitting Pulse 57 Pulse Source Pulse Oximeter Pulse Oximetry (%) 97 Oxygen Delivery Method Room Air Intake Visit Reasons: PE Intake Note: Patient is here today for a physical. 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 Allergies amlodipine [AMLODIPINE] Allergy (Intermediate, Verified 07/19/23 09:48) SWELLING lisinopril [LISINOPRIL] Adverse Reaction (Intermediate, Verified 07/19/23 09:48) Cough Medication List - Last Reconciled 07/19/23 by Rashad Ellison MD cholecalciferol (vitamin D3) 25 mcg PO DAILY losartan-hydrochlorothiazide 100-25 mg 1 tab PO DAILY metoprolol succinate ER 100 mg PO DAILY multivitamin 1 tab PO DAILY simvastatin 40 mg PO QPM Tobacco use date assessed: 07/19/23 Dental Screening Dental Screen Date: 07/19/23 Did you have a dental visit in the last 12 months?: Yes Did you have a dental problem in the last 6 months where you did not have access to dental care?: No Was dental information given to patient?: Patient has dentist HPI PE HPI Details 62-year-old obese male with controlled d iabetes mellitus hypercholesterolemia hypertension last seen in April 2023 patient is here for physical exam. Patient's colonoscopy is up-to-date October 2021 tubular adenoma PFS Medical History (Updated 01/18/23 @ 13:18 by LINUS Corbett) Cirrhosis Cholelithiasis Obstructive sleep apnea Hypertension Hypercholesterolemia Obesity (BMI 30-39.9) Fatty liver Alcohol abuse Type 2 diabetes mellitus with hyperglycemia Surgical History H/O colonoscopy History of cholecystectomy History of tooth extraction History of inguinal hernia repair Family History Father Gastric cancer Mother Intestinal cancer Paternal Aunt Glioma Paternal Grandmother Liver cancer Social History (Updated 07/19/23 @ 10:21 by Rashad Ellison MD) Housing: House Alcohol intake: former Year quit: 2021 Comment: stopped alcohol October 2021 Patient Tobacco Use Status: Former Tobacco user Quit Date: 1996 Tobacco use type: Cigarette Years Smoked: quit 1992 e-Cigarette/Vaping Use: Never Used Second Hand Smoke Exposure: No Current occupational status: employed Cognitive needs: No Hearing needs: No Vision needs: No Questionnaire PHQ-9 Over the last 2 weeks, how often have you been bothered by any of the following problems? 1. Little interest or pleasure in doing things: not at all 2. Feeling down, depressed, or hopeless: not at all 3. Trouble falling or staying asleep, or sleeping too much: not at all 4. Feeling tired or having little energy: not at all 5. Poor appetite or overeating: not at all 6. Feeling bad about yourself - or that you are a failure or have let yourself or your family down: not at all 7. Trouble concentrating on things, such as reading the newspaper or watching television: not at all 8. Moving or speaking so slowly that other people could have noticed. Or the opposite - being so fidgety or restless that you have been moving around a lot more than usual: not at all 9. Thoughts that you would be better off or of hurting yourself in some way: not at all Total score: 0 Depression Screening Interpretation: Negative Depression Screening Done: Yes Source: Developed by Drs. Nikunj Ramon, Simin Morgan, Yung Ha and colleagues, with an educational mustapha from [employer]. Thrive Questionnaire Date Thrive assessed: 07/19/23 I am a: Patient What is your living situation today?: I have a steady place to live Within the past 12 months, did the food you bought not last and you didn't have the money to get more?: Never true Within the past 12 months, did you worry whether your food would run out before you got money to buy more?: Never true Do you have trouble paying for medicines?: No Do you have trouble getting transportation to medical appointments?: No Do you have trouble paying your heating and electricity bill?: No Do you have trouble taking care of your child, family member or friend?: No Do you have trouble with day-to-day activities such as bathing, preparing meals, shopping, managing finances, etc.?: No Are you currently unemployed and looking for a job?: No Are you interested in more education?: No Please select the resources that you would like help with: None THRIVE Score: 0 AUDIT C Alcohol Use Questionnaire (AUDIT-C) 1. How often do you have a drink containing alcohol?: Never 2. How many drinks containing alcohol do you have on a typical day when you are drinking?: 1 or 2 3. How often do you have six or more drinks on one occasion?: Never Total Score: 0 Score Reviewed/Action Taken: No MOSHE-7 AMB Questionnaire MOSHE-7 Date MOSHE - 7 assessed: 07/19/23 Source: Developed by Drs. Nikunj Ramon, Simin Morgan, Yung Ha and colleagues, with an educational mustapha from [employer]. Review of Systems Const Denies poor appetite and Denies weakness Eyes Denies no additional complaints ENT Reports Normal hearing present, Denies dizziness, Denies nasal congestion, Denies tinnitus and Denies sore throat Card Denies chest pain, Denies syncope, Denies rapid heart rate and Denies dyspnea Resp Denies cough and Denies dyspnea GI Denies change in stool character, Reports constipation, Denies diarrhea, Denies nausea and Denies vomiting Denies dysuria and Denies urinary frequency Neuro Reports Normal hearing present, Denies confusion, Denies dizziness, Denies syncope and Denies weakness Psych Denies confusion Physical exam (Primary Care) Vital Signs: Last Vital Signs Pulse 57 07/19/23 09:48 BP 160/92 H 07/19/23 09:48 Pulse Ox 97 07/19/23 09:48 Oxygen Delivery Method Room Air 07/19/23 09:48 BMI result Body Mass Index 30.6 Tobacco/Smoking Status: Tobacco use Status Tobacco use date assessed 07/19/23 07/19/23 09:49 Patient Tobacco Use Status Former Tobacco user 07/19/23 09:47 Tobacco use type Cigarette 07/19/23 09:47 e-Cigarette/Vaping Use Never Used 07/19/23 09:47 PHQ-9: PHQ-9 Score PHQ-9: Total score 0 07/19/23 10:02 Depression Screening Interpretation: Negative Thrive Assessment: Date of Thrive Assessment Date Thrive assessed 07/19/23 07/19/23 09:49 Const General: alert; No acute distress or confusion Orientation/consciousness: No confusion HENMT Head: Yes normocephalic Ears: external ears normal and TM's normal bilaterally Face and sinus: Yes normal facial exam Mouth: moist mucous membranes Throat: Yes tonsils normal Eyes Conjunctivae: conjunctivae normal Pupils: Equal, round and reactive pupils present and Pupil accommodation reflex normal Direct Ophthalmoscopy: normal light reflex Neck Neck: No lymphadenopathy Thyroid: Thyroid normal Chest Chest palpation & inspection: normal inspection of the chest Resp Effort & Inspection: normal respiratory effort and no audible wheezes Auscultation: clear to auscultation bilaterally Cardio Rate: regular rate Rhythm: regular rhythm Peripheral pulses: radial pulses present and dorsalis pedis present GI Other: guaiac negative and prostate N Inspection: Yes normal to inspection Palpation (GI): no masses Auscultation: normal bowel sounds and normoactive bowel sounds Male General Exam: Yes normal external exam Skin General skin exam: no rashes or lesions noted Rashes: no rashes Neuro General: deep tendon reflexes 2+ bilaterally and No confusion Cranial nerves: Yes Equal, round and reactive pupils present, Yes Midline tongue present, Yes Normal hearing present and Yes Ability to bilaterally elevate shoulders present Cognition (Neuro): normal cognition Gait exam (Neuro): Normal gait present Motor exam (neuro): 5/5 motor strength present throughout Deep tendon reflexes (DTR's): Right brachioradialis reflex intensity grade: 2+, Left brachioradialis reflex intensity grade: 2+, Right patellar reflex intensity grade: 2+ and Left patellar reflex intensity grade: 2+ Extrem Other: pedal pulses and pin prick N General: Yes normal to inspection and No edema Results AMB Hemoglobin A1c AMB Hemoglobin A1c 5.9 % Last Edit by EDDI Lechuga on 07/19/23 10:11 Results Reviewed Results Reviewed: Laboratory Last Values Hgb A1c (Clinic) 5.9 % (4.0-6.0) 07/19/23 09:46 Assessment and Plan Assessment & Plan (1) Type 2 diabetes mellitus with hyperglycemia: Comment: reminded eye exam Dr. Wheeler Code(s): E11.65 - Type 2 diabetes mellitus with hyperglycemia Qualifiers: Diabetes mellitus supervisor intermediates insulin use: without shelter use Qualified Code(s): E11.65 - Type 2 diabetes mellitus with hyperglycemia Plan: Decrease the amount of carbohydrate intake, pasta, bread, rice and potatoes are all sugar and that is aside from all the sweet stuff, remember that fruits are good but they are Sweet also. Hemoglobin A1c goal of less than 6.5. Patient is diet controlled (2) Annual physical exam: Code(s): Z00.00 - Encounter for general adult medical examination without abnormal findings (3) Obesity (BMI 30-39.9): Code(s): E66.9 - Obesity, unspecified Plan: Diet and exercise (4) Hypercholesterolemia: Code(s): E78.00 - Pure hypercholesterolemia, unspecified Plan: Avoid fried foods, chicken skin, eggs, butter margarine, pastries and meat. Be it pork or beef they have a lot of cholesterol LDL goal of less than 100 and triglyceride of less than 150 January 2023 last blood work (5) Hypertension: Code(s): I10 - Essential (primary) hypertension Qualifiers: Hypertension type: essential hypertension Qualified Code(s): I10 - Essential (primary) hypertension Plan: Continue with blood pressure medication. Decrease salt intake and exercise continue with losartan hydrochlorothiazide and metoprolol 100 mg once a day Orders: Orders AMB Hemoglobin A1c Today E11.65 - Type 2 diabetes mellitus with hyperglycemia Medications: New losartan-hydrochlorothiazide 100-25 mg 1 tab PO DAILY 90 tabs 1RF I10 - Essential (primary) hypertension Discontinued losartan-hydrochlorothiazide 50-12.5 mg Discontinued Reason: Doctor's Order 1 tab PO DAILY 30 tabs 3RF I10 - Essential (primary) hypertension Coding Level of Care Code Est Pt Prev Care 40-64y(75937) Diagnoses Type 2 diabetes mellitus with hyperglycemia, without long-term current use of insulin E11.65 Diabetes mellitus supervisor intermediates insulin use: without shelter use Annual physical exam Z00.00 Obesity (BMI 30-39.9) E66.9 Hypercholesterolemia E78.00 Essential hypertension I10 Hypertension type: essential hypertension
[2023-07-19 09:48] VITALS: BP 160/92; PULSE 57; O2SAT 97; BMI 30.6
[2023-07-19 10:17] VITALS: BP 158/80
== END 2023-07-19 10:36 | disposition home or self-care (01) ==
PROVIDERS: Visit Provider Internal Medicine
DX: Z00.00 Encounter for general adult medical examination without abnormal findings (principal); E11.65 Type 2 diabetes mellitus with hyperglycemia; Z68.30 Body mass index [BMI] 30.0-30.9, adult; E66.9 Obesity, unspecified; E78.00 Pure hypercholesterolemia, unspecified; I10 Essential (primary) hypertension
CPT/HCPCS: 83036; 99396

== ENCOUNTER 2023-10-25 10:28 | Outpatient (AMB) | payer OTHER, SELFPAY ==
[2023-10-25 10:34] VITALS: BP 140/68; PULSE 55; O2SAT 98; BMI 30.1
--- NOTE | 2023-10-25 10:34 | A.OFFPC_ITS ---
Vital Signs 10/25/23 10:34 Height 5 ft 9 in Weight 204 lb BMI 30.1 BP 140/68 H Blood Pressure Location Lt brachial Position Sitting Pulse 55 Pulse Source Pulse Oximeter Pulse Oximetry (%) 98 Oxygen Delivery Method Room Air Intake Visit Reasons: 3 month f/u Allergies amlodipine [AMLODIPINE] Allergy (Intermediate, Verified 10/25/23 10:34) SWELLING lisinopril [LISINOPRIL] Adverse Reaction (Intermediate, Verified 10/25/23 10:34) Cough Medication List - Last Reconciled 10/25/23 by Rashad Ellison MD cholecalciferol (vitamin D3) 25 mcg PO DAILY losartan-hydrochlorothiazide 100-25 mg 1 tab PO DAILY metoprolol succinate ER 100 mg PO DAILY multivitamin 1 tab PO DAILY simvastatin 40 mg PO QPM Tobacco use date assessed: 07/19/23 Fall risk assessment: 1 Fall in past year Last assessed Fall Risk: 10/25/23 Dental Screening Dental Screen Date: 10/25/23 Did you have a dental visit in the last 12 months?: Yes Did you have a dental problem in the last 6 months where you did not have access to dental care?: No Was dental information given to patient?: Patient has dentist HPI 3 month f/u HPI Details 63-year-old obese male with controlled d iabetes mellitus hypercholesterolemia hypertension last seen in July 2023. Patient's colonoscopy last done in October 2021 [facility] Medical History (Updated 10/25/23 @ 11:36 by Rashad Ellison MD) Screening for prostate cancer Cirrhosis Cholelithiasis Obstructive sleep apnea Hypertension Hypercholesterolemia Obesity (BMI 30-39.9) Fatty liver Alcohol abuse Type 2 diabetes mellitus with hyperglycemia Surgical History H/O colonoscopy History of cholecystectomy History of tooth extraction History of inguinal hernia repair Family History Father Gastric cancer Mother Intestinal cancer Paternal Aunt Glioma Paternal Grandmother Liver cancer Social History (Updated 07/19/23 @ 10:21 by Rashad Ellison MD) Housing: House Alcohol intake: former Year quit: 2021 Comment: stopped alcohol October 2021 Patient Tobacco Use Status: Former Tobacco user Quit Date: 1996 Tobacco use type: Cigarette Years Smoked: quit 1992 e-Cigarette/Vaping Use: Never Used Second Hand Smoke Exposure: No Current occupational status: employed Cognitive needs: No Hearing needs: No Vision needs: No Questionnaire PHQ-9 Over the last 2 weeks, how often have you been bothered by any of the following problems? 1. Little interest or pleasure in doing things: not at all 2. Feeling down, depressed, or hopeless: not at all 3. Trouble falling or staying asleep, or sleeping too much: not at all 4. Feeling tired or having little energy: not at all 5. Poor appetite or overeating: not at all 6. Feeling bad about yourself - or that you are a failure or have let yourself or your family down: not at all 7. Trouble concentrating on things, such as reading the newspaper or watching television: not at all 8. Moving or speaking so slowly that other people could have noticed. Or the opposite - being so fidgety or restless that you have been moving around a lot more than usual: not at all 9. Thoughts that you would be better off or of hurting yourself in some way: not at all Total score: 0 Depression Screening Interpretation: Negative Depression Screening Done: Yes Source: Developed by Drs. Nikunj Ramon, Yung Goodson and colleagues, with an educational mustapha from [email or web address]. Thrive Questionnaire Date Thrive assessed: 07/19/23 AUDIT C Alcohol Use Questionnaire (AUDIT-C) 1. How often do you have a drink containing alcohol?: Never 2. How many drinks containing alcohol do you have on a typical day when you are drinking?: 1 or 2 3. How often do you have six or more drinks on one occasion?: Never Total Score: 0 Score Reviewed/Action Taken: No MOSHE-7 AMB Questionnaire MOSHE-7 Date MOSHE - 7 assessed: 07/19/23 Source: Developed by Drs. Nikunj Ramon, Yung Goodson and colleagues, with an educational mustapha from [email or web address]. Physical exam (Primary Care) Vital Signs: Last Vital Signs Pulse 55 10/25/23 10:34 BP 140/68 H 10/25/23 10:34 Pulse Ox 98 10/25/23 10:34 Oxygen Delivery Method Room Air 10/25/23 10:34 BMI result Body Mass Index 30.1 Tobacco/Smoking Status: Tobacco use Status Tobacco use date assessed 07/19/23 10/25/23 10:35 Patient Tobacco Use Status Former Tobacco user 10/25/23 10:35 Tobacco use type Cigarette 10/25/23 10:35 e-Cigarette/Vaping Use Never Used 10/25/23 10:35 PHQ-9: PHQ-9 Score PHQ-9: Total score 0 10/25/23 11:03 Depression Screening Interpretation: Negative Thrive Assessment: Date of Thrive Assessment Date Thrive assessed 07/19/23 10/25/23 10:35 Const General: alert; No acute distress Eyes Conjunctivae: conjunctivae normal Resp Auscultation: clear to auscultation bilaterally Cardio Rate: regular rate Rhythm: regular rhythm GI Inspection: Yes normal to inspection Extrem General: Yes normal to inspection and No edema Results AMB Hemoglobin A1c AMB Hemoglobin A1c 5.6 % Last Edit by Karely Pink CMA on 10/25/23 11 :04 Results Reviewed Results Reviewed: Laboratory Last Values Hgb A1c (Clinic) 5.6 % (4.0-6.0) 10/25/23 11:03 Assessment and Plan Assessment & Plan (1) Type 2 diabetes mellitus with hyperglycemia: Comment: reminded eye exam Dr. Wheeler Code(s): E11.65 - Type 2 diabetes mellitus with hyperglycemia Qualifiers: Diabetes mellitus intermodal customer service insulin use: without intermodal customer service use Qualified Code(s): E11.65 - Type 2 diabetes mellitus with hyperglycemia Plan: Decrease the amount of carbohydrate intake, pasta, bread, rice and potatoes are all sugar and that is aside from all the sweet stuff, remember that fruits are good but they are Sweet also. Under control hemoglobin A1c goal of less than 6.5 (2) Obesity (BMI 30-39.9): Code(s): E66.9 - Obesity, unspecified Plan: Diet and exercise (3) Hypercholesterolemia: Code(s): E78.00 - Pure hypercholesterolemia, unspecified Plan: Avoid fried foods, chicken skin, eggs, butter margarine, pastries and meat. Be it pork or beef they have a lot of cholesterol January 2023 last blood work on simvastatin 40 mg (4) Hypertension: Code(s): I10 - Essential (primary) hypertension Qualifiers: Hypertension type: essential hypertension Qualified Code(s): I10 - Essential (primary) hypertension Plan: Continue with blood pressure medication. Decrease salt intake and exercise presently on metoprolol 100 mg once a day and losartan hydrochlorothiazide 100/25. BP high here and good at home Orders: Orders AMB Hemoglobin A1c Today Z13.9 - Encounter for screening, unspecified Complete Blood Count Auto Diff 3 Months E11.65 - Type 2 diabetes mellitus with hyperglycemia Comprehensive Met. Panel 3 Months E11.65 - Type 2 diabetes mellitus with hyperglycemia Free T4 (Free Thyroxine) 3 Months E11.65 - Type 2 diabetes mellitus with hyperglycemia Thyroid Stimulating Hormone 3 Months E11.65 - Type 2 diabetes mellitus with hyperglycemia Vitamin B12 and Folate 3 Months E11.65 - Type 2 diabetes mellitus with hyperglycemia Creatinine Urine 3 Months E11.65 - Type 2 diabetes mellitus with hyperglycemia Lipid Panel 3 Months E11.65 - Type 2 diabetes mellitus with hyperglycemia, E78.00 - Pure hypercholesterolemia, unspecified Microalbumin, Random (w Creat) 3 Months E11.65 - Type 2 diabetes mellitus with hyperglycemia Prostate Specific Antigen Scr 3 Months E11.65 - Type 2 diabetes mellitus with hyperglycemia Hemoglobin A1c 3 Months E11.65 - Type 2 diabetes mellitus with hyperglycemia Medications: Refilled losartan-hydrochlorothiazide 100-25 mg 1 tab PO DAILY 90 tabs 1RF I10 - Essential (primary) hypertension Coding Level of Care Code Est Pt Level 4 (92387) Diagnoses Type 2 diabetes mellitus with hyperglycemia, without long-term current use of insulin E11.65 Diabetes mellitus usp insulin use: without intermodal customer service use Obesity (BMI 30-39.9) E66.9 Hypercholesterolemia E78.00 Essential hypertension I10 Hypertension type: essential hypertension
== END 2023-10-25 11:50 | disposition home or self-care (01) ==
PROVIDERS: PCP Internal Medicine; Visit Provider Internal Medicine
DX: E11.65 Type 2 diabetes mellitus with hyperglycemia (principal); E66.9 Obesity, unspecified; E78.00 Pure hypercholesterolemia, unspecified; Z68.30 Body mass index [BMI] 30.0-30.9, adult; I10 Essential (primary) hypertension
CPT/HCPCS: 83036; 99214

== ENCOUNTER 2024-01-28 10:59 | Outpatient (REF) | payer OTHER, SELFPAY ==
[2024-01-28 11:21] LABS: MANUAL DIFF FLAG NO
[2024-01-28 11:59] LABS: Basophils Percent Auto 0.4 % (0-2); Eosinophils Absolute Auto 0.2 X10*3/uL (0.0-0.4); Eosinophils Percent Auto 3.2 % (0-4); Hematocrit 41.2 % (42.0-52.0); Hemoglobin 14.4 g/dl (14.0-18.0); Imm Gran Abs Auto 0.02 X10*3/uL (0.00-0.03); Imm Gran Pct Auto 0.4 % (0.0-0.4); Lymphocytes Absolute Auto 1.6 X10*3/uL (1.2-4.9); Mean Corpuscular Hemoglobin 31.3 pg (27.0-33.0); Mean Corpuscular Volume 89.6 fL (80.0-98.0); Monocytes Absolute Auto 0.3 X10*3/uL (0.1-1.2); Monocytes Percent Auto 6.6 % (2-11); Neutrophils Absolute Auto 2.9 x10*3/uL (2.0-8.3); Neutrophils Percent Auto 57.4 % (45-73); Platelet Count 178 X10*3/uL (160-400); Red Cell Distribution Width 12.6 % (11.0-16.0)
[2024-01-28 12:15] LABS: Estimated Average Glucose 105 mg/dL; Hemoglobin A1c % 5.3 % (<6.0)
[2024-01-28 12:36] LABS: Alanine Aminotransferase 22 U/L (0-40); Albumin Level 4.5 g/dL (3.5-5.0); Alkaline Phosphatase 66 U/L (39-117); Anion Gap 16 (12-20); Aspartate Amino Transferase 31 U/L (5-37); Bilirubin Total 1.2 mg/dL (0.0-1.0); Blood Urea Nitrogen 9 mg/dL (9-16); Carbon Dioxide 24 mmol/L (22-29); Chloride 108 mmol/L (96-108); Cholesterol 115 mg/dL (<200); Estimated Glomerular Filt Rate > 60; Glucose Random 106 mg/dL (60-115); HDL Cholesterol 39 mg/dL (>40); LDL Cholesterol Calculated 48 mg/dL (<100); Potassium 3.5 mmol/L (3.3-5.1); Sodium 144 mmol/L (135-145); Total Protein 7.6 g/dL (6.5-8.0); Triglycerides 140 mg/dL (<150)
[2024-01-28 12:45] LABS: Thyroid Stimulating Hormone 1.27 uIU/mL (0.32-4.0)
[2024-01-28 13:00] LABS: Folate 14.1 ng/mL (> or = 4.0); Prostate Specific Antigen Scr 0.71 ng/mL (<0.05-4.0); Vitamin B12 1217 pg/mL (200-900)
[2024-01-28 13:02] LABS: Microalbum/Creatinine Ratio Ur 13.2 ug/mg cr (<30)
== END 2024-01-28 11:00 | disposition home or self-care (01) ==
LOC: HO.LAB 10:59
PROVIDERS: PCP Internal Medicine; Visit Provider Internal Medicine
DX: E11.65 Type 2 diabetes mellitus with hyperglycemia (principal); E78.00 Pure hypercholesterolemia, unspecified; Z12.5 Encounter for screening for malignant neoplasm of prostate
CPT/HCPCS: 36415; 80053; 80061; 82043; 82570; 82607; 82746; 83036; 84153; 84439; 84443; 85025

== ENCOUNTER 2024-07-31 11:10 | Outpatient (AMB) | payer OTHER, SELFPAY ==
[2024-07-31 11:23] VITALS: BP 136/72; PULSE 58; O2SAT 95; BMI 31.2
--- NOTE | 2024-07-31 11:23 | MHC.PC.OV ---
Vital Signs 07/31/24 11:23 Height 5 ft 9 in Weight 211 lb BMI 31.2 BP 136/72 Blood Pressure Location Lt brachial Position Sitting Pulse 58 Pulse Source Pulse Oximeter Pulse Oximetry (%) 95 Oxygen Delivery Method Room Air Intake Visit Reasons: PE Allergies amlodipine [AMLODIPINE] Allergy (Intermediate, Verified 07/31/24 11:24) SWELLING lisinopril [LISINOPRIL] Adverse Reaction (Intermediate, Verified 07/31/24 11:24) Cough Medication List - Last Reconciled 07/31/24 by Rashad Ellison MD cholecalciferol (vitamin D3) 25 mcg PO DAILY losartan-hydrochlorothiazide 100-25 mg 1 tab PO DAILY metoprolol succinate ER 100 mg PO DAILY multivitamin 1 tab PO DAILY simvastatin 40 mg PO QPM Tobacco use date assessed: 07/31/24 Fall risk assessment: No Falls in past year Last assessed Fall Risk: 07/31/24 Dental Screening Dental Screen Date: 07/31/24 Did you have a dental visit in the last 12 months?: Yes Did you have a dental problem in the last 6 months where you did not have access to dental care?: No Was dental information given to patient?: Patient has dentist HPI PE HPI Details fall august 2023 [address] on [address] lot fell backward pain on the anterior The patient is a 64-year-old male presenting for a physical examination. The patient reports a history of obesity, type 2 diabetes mellitus with a current hemoglobin A1c of 5.3, indicating control, essential hypertension managed with metoprolol, losartan, and hydrochlorothiazide, and hypercholesterolemia with an LDL of 48 while on simvastatin. He has a history of obstructive sleep apnea but is not using CPAP. The patient has experienced a 7-pound weight gain since the last visit in October 2023. He is compliant with his wellness and medication plan, which aims to keep his LDL cholesterol below 100 and triglycerides below 150. His blood pressure readings have been stable, though he has experienced issues with lisinopril and amlodipine in the past. The patient denies changes in medication regimens and new supplements besides vitamin D and multivitamins. - HbA1c monitoring, goal set to maintain below 6.5% - Cholesterol management with simvastatin, LDL goal below 100 - Monitoring triglyceride levels with a target of less than 150 - Blood pressure management with metoprolol, losartan, and hydrochlorothiazide - Annual physical examinations - Colonoscopy last performed in October 2021, due for follow-up this year - Regular ophthalmological evaluations for cataracts - PSA screening, results normal - Vaccination: Flu shot administered during the visit - History of daily marijuana use since age 13 - Abstains from alcohol and tobacco use - Engages in daily living activities with limited exercise - Dietary efforts include increased water intake and fiber consumption following gallbladder removal - Falls history: Slipped on ice causing foot injury - Concerns about health insurance continuity and coverage - General: Denies fever, dizziness, nausea, vomiting, and fatigue. - Ears: Reports decreased hearing noted by employer; denies pain. - Respiratory: Denies shortness of breath and cough. - Cardiovascular: Denies chest pain or discomfort, no edema. - Gastrointestinal: Reports watery stools post-cholecystectomy; denies dysphagia or heartburn. - Musculoskeletal: Reports knee pain when standing and some back pain. - Urinary: Denies nocturia, wakes once or less per night. - Neurological: Denies passing out or dizziness; decreased hearing noted. - Skin: Reports dry skin and sun-damage spots; uses lotion regularly. - Visual: Reports beginning of cataracts; denies major vision changes. - Labs: Hemoglobin A1c 5.3; LDL cholesterol 48; normal PSA; normal thyroid panel; normal complete blood count with normal renal and liver function. - Screening: Colonoscopy in October 2021. - Hearing Evaluation: Employer-reported hearing loss. [facility] Medical History (Updated 07/31/24 @ 11:49 by Rashad Ellison MD) Screening for prostate cancer Cirrhosis Cholelithiasis Obstructive sleep apnea Hypertension Hypercholesterolemia Obesity (BMI 30-39.9) Fatty liver Alcohol abuse Type 2 diabetes mellitus with hyperglycemia Surgical History H/O colonoscopy History of cholecystectomy History of tooth extraction History of inguinal hernia repair Family History Father Gastric cancer Mother Intestinal cancer Paternal Aunt Glioma Paternal Grandmother Liver cancer Social History (Updated 07/31/24 @ 11:44 by Rashad Ellison MD) Housing: House Alcohol intake: former Year quit: 2021 Comment: stopped alcohol October 2021 Patient Tobacco Use Status: Former Tobacco user Tobacco use type: Cigarette Years Smoked: quit 1992 marijuana e-Cigarette/Vaping Use: Never Used Second Hand Smoke Exposure: No Current occupational status: employed Cognitive needs: No Hearing needs: No Vision needs: No Questionnaire PHQ-9 Over the last 2 weeks, how often have you been bothered by any of the following problems? 1. Little interest or pleasure in doing things: not at all 2. Feeling down, depressed, or hopeless: not at all 3. Trouble falling or staying asleep, or sleeping too much: not at all 4. Feeling tired or having little energy: not at all 5. Poor appetite or overeating: not at all 6. Feeling bad about yourself - or that you are a failure or have let yourself or your family down: not at all 7. Trouble concentrating on things, such as reading the newspaper or watching television: not at all 8. Moving or speaking so slowly that other people could have noticed. Or the opposite - being so fidgety or restless that you have been moving around a lot more than usual: not at all 9. Thoughts that you would be better off or of hurting yourself in some way: not at all Total score: 0 Depression Screening Interpretation: Negative Depression Screening Done: Yes 46553 - PHQ-9 Billing: Yes Source: Developed by Drs. Nikunj Ramon, Simin Morgan, Yung Ha and colleagues, with an educational mustapha from [employer]. Thrive Questionnaire Date Thrive assessed: 07/31/24 I am a: Patient What is your living situation today?: I have a steady place to live Within the past 12 months, did the food you bought not last and you didn't have the money to get more?: I choose not to answer this question Within the past 12 months, did you worry whether your food would run out before you got money to buy more?: I choose not to answer this question Do you have trouble paying for medicines?: I choose not to answer this question Do you have trouble getting transportation to medical appointments?: No Do you have trouble paying your heating and electricity bill?: No Do you have trouble taking care of your child, family member or friend?: No Do you have trouble with day-to-day activities such as bathing, preparing meals, shopping, managing finances, etc.?: No Are you currently unemployed and looking for a job?: No Are you interested in more education?: No Please select the resources that you would like help with: None Currently or been in a relationship where the following occur: No concerns reported THRIVE Score: 0 AUDIT C Alcohol Use Questionnaire (AUDIT-C) 1. How often do you have a drink containing alcohol?: Never 3. How often do you have six or more drinks on one occasion?: Never Total Score: 0 MOSHE-7 AMB Questionnaire MOSHE-7 Date MOSHE - 7 assessed: 07/19/23 Feeling nervous, anxious, or on edge: 0 = Not at all Not being able to stop or control worryin = Not at all Worrying too much about different things: 0 = Not at all Trouble relaxin = Not at all Being so restless that it is hard to sit still: 0 = Not at all Becoming easily annoyed or irritable: 0 = Not at all Feeling afraid as if something awful might happen: 0 = Not at all Total MOSHE-7 score (0-4 normal; 5-9 mild; 10-14 moderate; 15-21 severe): 0 Source: Developed by Drs. Nikunj Ramon, Simin Morgan, Yung Ha and colleagues, with an educational mustapha from [employer]. MOSHE-7 Assessment Billing MOSHE-7 Assessment Tool: MOSHE-7 Assessment 34562 Review of Systems Const Denies poor appetite and Denies weakness Eyes Denies no additional complaints ENT Reports Normal hearing present, Denies dizziness, Denies nasal congestion, Denies tinnitus and Denies sore throat Card Denies chest pain, Denies syncope, Denies rapid heart rate and Denies dyspnea Resp Denies cough and Denies dyspnea GI Denies change in stool character, Reports constipation, Denies diarrhea, Denies nausea and Denies vomiting Denies dysuria and Denies urinary frequency Neuro Reports Normal hearing present, Denies confusion, Denies dizziness, Denies syncope and Denies weakness Psych Denies confusion Physical exam (Primary Care) Vital Signs: Last Vital Signs Pulse 58 07/31/24 11:23 BP 136/72 07/31/24 11:23 Pulse Ox 95 07/31/24 11:23 Oxygen Delivery Method Room Air 07/31/24 11:23 BMI result Body Mass Index 31.2 Tobacco/Smoking Status: Tobacco use Status Tobacco use date assessed 07/31/24 07/31/24 11:35 Patient Tobacco Use Status Former Tobacco user 07/31/24 11:44 Tobacco use type Cigarette 07/31/24 11:44 e-Cigarette/Vaping Use Never Used 07/31/24 11:44 PHQ-9: PHQ-9 Score PHQ-9: Total score 0 07/31/24 12:08 Depression Screening Interpretation: Negative Thrive Assessment: Date of Thrive Assessment Date Thrive assessed 07/31/24 07/31/24 11:35 Currently or been in a relationship where the following occur: No concerns reported Const General: No confusion Orientation/consciousness: No confusion HENMT Head: Yes normocephalic Ears: external ears normal and TM's normal bilaterally Face and sinus: Yes normal facial exam Mouth: moist mucous membranes Throat: Yes tonsils normal Eyes Conjunctivae: conjunctivae normal Pupils: Equal, round and reactive pupils present and Pupil accommodation reflex normal Direct Ophthalmoscopy: normal light reflex Neck Neck: No lymphadenopathy Thyroid: Thyroid normal Chest Chest palpation & inspection: normal inspection of the chest Resp Effort & Inspection: normal respiratory effort and no audible wheezes Auscultation: clear to auscultation bilaterally, no crackles, no wheezes and lung sounds not diminished Cardio Rate: regular rate Rhythm: regular rhythm Peripheral pulses: radial pulses present and dorsalis pedis present GI Other: colon test today Palpation (GI): no masses Auscultation: normal bowel sounds and normoactive bowel sounds Rectal Exam - Male: Yes deferred Other: pedal pulse and pin prick good Male General Exam: Yes normal external exam Skin General skin exam: no rashes or lesions noted Rashes: no rashes Neuro General: No confusion Cranial nerves: Yes Equal, round and reactive pupils present and Yes Normal hearing present Cognition (Neuro): normal cognition Gait exam (Neuro): Normal gait present Motor exam (neuro): 5/5 motor strength present throughout Deep tendon reflexes (DTR's): Right brachioradialis reflex intensity grade: 2+, Left brachioradialis reflex intensity grade: 2+, Right patellar reflex intensity grade: 2+ and Left patellar reflex intensity grade: 2+ Extrem General: No edema Office Procedures Flu Questionnaire Does the patient have a severe egg allergy?: No Does the patient have severe life threatening allergies?: No Does the patient have a fever or illness today?: No Has the patient ever had Guillain-Hudson Syndrome?: No Has the patient ever had any past reaction to a flu shot?: No Immunizations Fluarix Triv [id number] (PF) 45 mcg (15 mcg x 3)/0.5 mL IM syringe Performing Provider: Rashad Ellison MD [facility] Administered by: EDDI Cohn on 07/31/24 12:08 Dose Route Admin Location Dispensed Lot Number Expiration Date [facility] Call Box Wirer 0.5 mL IM Left Deltoid 0.5 mL [id number] 12/08/24 [id number] [employer] VIS Given Date VIS Provided VIS Publication Date 07/31/24 Single Vaccine 21 Eligibility Eligibility Date Funding Source Not [facility] Eligible 07/31/24 Private Coding Level of Care Code Est Pt Prev Care >65y(69805) Diagnoses Annual physical exam Z00.00 Type 2 diabetes mellitus with hyperglycemia, without long-term current use of insulin E11.65 Diabetes mellitus manager long term care insulin use: without retirement use Obesity (BMI 30-39.9) E66.9 Hypercholesterolemia E78.00 Essential hypertension I10 Hypertension type: essential hypertension Knee pain, left M25.562 Additional Codes MOSHE-7 Assessment Billing - MOSHE-7 Assessment Tool: MOSHE-7 Assessment 18795 ([id number]) PHQ-9 - 20898 - PHQ-9 Billing: Yes ([id number]) Assessment & Plan Assessment & Plan (1) Annual physical exam: Code(s): Z00.00 - Encounter for general adult medical examination without abnormal findings Category: Medical Plan: Patient is advised to eat healthy, keep well hydrated, keep active and have adequate sleep. (2) Type 2 diabetes mellitus with hyperglycemia: Comment: reminded eye exam Dr. Wheeler Code(s): E11.65 - Type 2 diabetes mellitus with hyperglycemia Category: Medical Qualifiers: Diabetes mellitus manager long term care insulin use: without retirement use Qualified Code(s): E11.65 - Type 2 diabetes mellitus with hyperglycemia Plan: Decrease the amount of carbohydrate intake, pasta, bread, rice and potatoes are all sugar and that is aside from all the sweet stuff, remember that fruits are good but they are Sweet also. Hemoglobin A1c goal of less than 6.5 patient is under control. (3) Obesity (BMI 30-39.9): Code(s): E66.9 - Obesity, unspecified Category: Medical Plan: Diet and exercise (4) Hypercholesterolemia: Code(s): E78.00 - Pure hypercholesterolemia, unspecified Category: Medical Plan: Avoid fried foods, chicken skin, eggs, butter margarine, pastries and meat. Be it pork or beef they have a lot of cholesterol on simvastatin LDL goal of less than 100 and triglyceride of less than 150. (5) Hypertension: Code(s): I10 - Essential (primary) hypertension Category: Medical Qualifiers: Hypertension type: essential hypertension Qualified Code(s): I10 - Essential (primary) hypertension Plan: Continue with blood pressure medication. Decrease salt intake and exercise on metoprolol and losartan hydrochlorothiazide. (6) Knee pain, left: Comment: fall 08/2023 Code(s): M25.562 - Pain in left knee Category: Medical Plan - Continue current medication regimen for diabetes, hypertension, and hypercholesterolemia. - Order knee x-ray to evaluate for arthritis. - Continue routine colonoscopy screening, confirm schedule. - Annual eye exams to monitor cataracts. - Flu vaccination administered; recommend continuing preventive measures. - Follow up on insurance coverage issues as needed. - Recommend dermatology consult for evaluation and potential treatment of sun-damaged skin if bothersome. During today's visit, we discussed the patient's control of type 2 diabetes with an A1c of 5.3 and the LDL level of 48 while on simvastatin. The possibility of arthritis was discussed for knee pain, and an x-ray was ordered. The patient expressed concerns about insurance coverage, which remains a point of follow-up. The patient was informed of the importance of continuing preventive care, including colonoscopies, flu vaccinations, and regular screenings for potential complications of long-term conditions like obstructive sleep apnea and hypertension. The impact of continued marijuana smoking on cardiovascular health was noted, and recommendations to cease or switch to non-smoking forms were discussed without patient preference for intervention. I addressed concerns regarding skin health, pointing to sun damage as non-alarming unless changes occur. - Continue current medications as advised. - Schedule a knee x-ray. - Maintain annual eye check-ups to monitor cataracts. - Obtain routine colonoscopy as due. - Maintain dietary fiber intake and hydration. - Minimize sun exposure and use lotion for dry skin. - Avoid tobacco and manage marijuana usage cautiously. - Attend to insurance matters promptly for continuity of care. - Return for scheduled follow-ups and any new concerns. Orders: Orders Complete Blood Count Auto Diff 6 Months E11.65 - Type 2 diabetes mellitus with hyperglycemia Thyroid Stimulating Hormone 6 Months E11. - Type 2 diabetes mellitus with hyperglycemia Lipid Panel 6 Months E11.65 - Type 2 diabetes mellitus with hyperglycemia, E78.00 - Pure hypercholesterolemia, unspecified Prostate Specific Antigen Scr 6 Months E11. - Type 2 diabetes mellitus with hyperglycemia Creatinine Urine 6 Months E11. - Type 2 diabetes mellitus with hyperglycemia Microalbumin, Random (w Creat) 6 Months E11. - Type 2 diabetes mellitus with hyperglycemia Hemoglobin A1c 6 Months E11. - Type 2 diabetes mellitus with hyperglycemia Influenza [id number] Immunization Today Z23 - Encounter for immunization XR knee LT 2V Today M25.562 - Pain in left knee Comprehensive Met. Panel 6 Months E11.65 - Type 2 diabetes mellitus with hyperglycemia Free T4 (Free Thyroxine) 6 Months E11. - Type 2 diabetes mellitus with hyperglycemia Vitamin B12 and Folate 6 Months E11.65 - Type 2 diabetes mellitus with hyperglycemia
--- OUTSIDE RECORDS SUMMARY | 2024-07-31 12:32 | XMS_ITS | Patient Health Record ---
Author Organization [facility] Address [address] [place] [address] Care Team Providers Care Lining Setter Name Role Phone Rashad Ellison MD Primary Care Provider Tony Moore Jr ALLERGIES No Known Allergies REASON FOR REFERRAL No Information MEDICATIONS Medication SIG (Take, Route, Frequency, Duration) Notes Start Date End Date Status MiraLax (colon prep) 17 GM/SCOOP mixed with Gatorade or Crystal Light Orally begin at 5:00 p.m. the day before the procedure for 1 day 10/10/2021 Active hydroCHLOROthiazide 25 MG 1 capsule in t he morning Orally Once a day Active Dev Multi Men - 1 Orally QD A ctive Metoprolol Succinate ER 100 MG 1 tablet Orally Once a day Active Aspirin 81 81 MG 1 tablet Orally Once a day for 30 day(s) Active Simvastatin 40 MG 1 tablet in the evening Orally Once a day Active IMMUNIZATIONS Vaccine Route Administration Date Status Comme nts Influenza Unknown 04/20/2017 Administered Influenza Unknown 04/27/2021 Administered SOCIAL HISTORY Sex Assigned At : Social History Observation Description Sex Assigned At Unknown PROBLEMS Problem Type ICD Code Onset Dates Problem Status W/U Status Risk SNOMED Code Notes Problem Colon cancer screening (Z12.11) Active confirmed 272352211 Problem Encounter for other preprocedural examination (Z01.818) Active confirmed 23503247 Problem Cirrhosis (K74.60) Active confirmed Cir rhotic (146953182) Problem Long-term current use of high risk medication other than anticoagulant (Z79.899) Active confirmed 443523891 Problem Cirrhosis of liver without ascites, unspecified hepatic cirrhosis type (K74.60) Active confirmed 95568559 PLAN OF TREATMENT Pending Test Test Name Order Date LIVER PROFILE 10/13/2021 CBC w/o DIFF 10/13/2021 PROTHROMBIN TIME (PT, INR) 10/13/2021 Future Test Test Name Order Date COLONOSCOPY 12/16/2012 COLONOSCOPY 04/17/2018 COLONOSCOPY 10/10/2021 UPPER GI ENDOSCOPY 10/13/2021 Insurance Providers Payer Name Payer Address Payer Phone Subscriber Number Group Number Insured Name Patient Relationship to Insured Coverage Start Date Coverage End Date [employer] [address] [place], [place] [id number] PRATEEK CORTES Self - patient is the insured MEDICAL (GENERAL) HISTORY Medical History History ICD Code elevated cholesterol hypertension obstructive sleep apnea, not currently u sing CPAP Cirrhosis noted at the time of laparosco pic cholecystectomy 2019. Surgical History Surgery Date(Month/Year) hernia repair oral surgery gallbladder removal
== END 2024-07-31 12:15 | disposition home or self-care (01) ==
PROVIDERS: PCP Internal Medicine; Visit Provider Internal Medicine
DX: Z00.00 Encounter for general adult medical examination without abnormal findings (principal); E11.65 Type 2 diabetes mellitus with hyperglycemia; E66.9 Obesity, unspecified; Z68.31 Body mass index [BMI] 31.0-31.9, adult; E78.00 Pure hypercholesterolemia, unspecified; I10 Essential (primary) hypertension; M25.562 Pain in left knee; Z23 Encounter for immunization

== ENCOUNTER → 2024-07-31 11:10 | Outpatient (BNVA) | payer OTHER, SELFPAY | PROVIDERS: PCP Internal Medicine; Visit Provider Internal Medicine | DX: Z00.00 Encounter for general adult medical examination without abnormal findings (principal); Z23 Encounter for immunization; E11.65 Type 2 diabetes mellitus with hyperglycemia; E66.9 Obesity, unspecified; E78.00 Pure hypercholesterolemia, unspecified; I10 Essential (primary) hypertension; M25.562 Pain in left knee; Z79.899 Other long term (current) drug therapy; Z91.81 History of falling | CPT/HCPCS: 90471; 90656; 96127 ==

== ENCOUNTER 2024-10-28 10:41 | Outpatient (REF) | payer OTHER, SELFPAY ==
--- NOTE | ~2024-10-28 | XR_ITS ---
CLINICAL HISTORY: M25.562 - Pain in left knee Left knee two views Comparison: None Findings: No acute fracture or dislocation noted. No significant joint effusion identified. No soft tissue foreign body. Impression: No acute bony abnormality This document has been electronically signed by: Lemuel Lea MD on 10/28/2024 22:27:49
--- OUTSIDE RECORDS SUMMARY | 2024-10-28 11:56 | XMS_ITS | Patient Health Record ---
Author Organization 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 Forming Machine Tender Name Role Phone Rashad Ellison MD Primary Care Provider Tony Moore Jr Allergies No Known Allergies Reason For Referral No Information Medications Medication SIG (Take, Route, Frequency, Duration) Notes [...] the evening Orally Once a day Active Immunizations Vaccine Route Administration Date Status Comme nts Influenza Unknown 04/20/2017 Administered Influenza Unknown 04/27/2021 Administered Problems Problem Type SNOMED Code ICD Code Onset Dates Problem Status W/U Status Risk Notes Problem 772920491 Colon cancer screening (Z12.11) Active confirmed Problem 28839604 Encounter for other preprocedural examination (Z01.818) Active confirmed Problem Cirrhotic (420966096) Cirrhosis (K74.60) Active confirmed Problem 769804941 Long-term curren t use of high risk medication other than anticoagulant (Z79.899) Active confirmed Problem 61588952 Cirrhosis of liver without ascites, unspecified hepatic cirrhosis type (K74.60) Active confirmed Plan Of Treatment Pending Test Test Name Order Date LIVER PROFILE 10/13/2021 CBC w/o DIFF 10/13/2021 PROTHROMBIN TIME (PT, INR) 10/13/2021 Future Test Test Name Order Date COLONOSCOPY 12/16/2012 COLONOSCOPY 04/17/2018 COLONOSCOPY 10/10/2021 UPPER GI ENDOSCOPY 10/13/2021 Insurance Providers Payer Name Payer Address Payer Phone Subscriber Number Group Number Insured Name Patient Relationship to Insured Coverage Start Date Coverage End Date [employer] [address] [place], [place] [id number] [phone] [id number] PRATEEK CORTES Self - patient is the insured Medical (General) History Medical History History ICD Code elevated cholesterol hypertension obstructive sleep apnea, not currently u sing CPAP Cirrhosis noted at the time of laparosco pic cholecystectomy 2019. Surgical History Surgery Date(Month/Year) hernia repair oral surgery gallbladder removal
== END 2024-10-28 10:42 | disposition home or self-care (01) ==
LOC: HO.XRAY 10:41
PROVIDERS: PCP Internal Medicine; Visit Provider Internal Medicine
DX: M25.562 Pain in left knee (principal)
CPT/HCPCS: 73560

== ENCOUNTER → 2024-10-28 10:45 | Outpatient (BNV) | payer OTHER, SELFPAY | PROVIDERS: PCP Internal Medicine; Visit Provider Radiology Diagnostic Radiology | DX: M25.562 Pain in left knee (principal) | CPT/HCPCS: 73560 ==

== ENCOUNTER 2025-01-22 11:14 | Outpatient (REF) | payer OTHER, SELFPAY ==
[2025-01-22 11:35] LABS: MANUAL DIFF FLAG NO
[2025-01-22 11:47] LABS: Hematocrit 41.2 % (42.0-52.0); Hemoglobin 14.4 g/dl (14.0-18.0); Imm Gran Abs Auto 0.02 X10*3/uL (0.00-0.03); Imm Gran Pct Auto 0.3 % (0.0-0.4); Lymphocytes Absolute Auto 1.6 X10*3/uL (1.2-4.9); Mean Corpuscular HGB Conc 35.0 g/dl (31.0-36.0); Mean Corpuscular Hemoglobin 31.4 pg (27.0-33.0); Mean Corpuscular Volume 90.0 fL (80.0-98.0); NRBC Abs Auto 0.000 X10*3/uL (0.0-0.012); NRBC Pct Auto 0.0 /100WBC (0.0-0.2); Platelet Count 195 X10*3/uL (160-400); Red Blood Count 4.58 X10*6/uL (4.60-5.80); White Blood Count 6.3 X10*3/uL (4.8-10.8)
[2025-01-22 12:08] LABS: Hemoglobin A1C 162.8129 umol/L; Total Hemoglobin (HGBA1C) 3980.8342 umol/L
--- OUTSIDE RECORDS SUMMARY | 2025-01-22 12:21 | XMS_ITS | Patient Health Record ---
Author Organization [facility] Address [address] [place] [address] Care Team Providers Care Communications Superintendent Name Role Phone Rashad Ellison MD Primary Care Provider Tony Moore Jr [phone] Allergies No Known Allergies Reason For Referral [...] Problem Status W/U Status Risk Notes Problem 039753759 Colon cancer screening (Z12.11) Active confirmed Problem 89807722 Encounter for other preprocedural examination (Z01.818) Active confirmed Problem Cirrhotic (279215378) Cirrhosis (K74.60) Active confirmed Problem 886245894 Long-term curren t use of high risk medication other than anticoagulant (Z79.899) Active confirmed Problem 63221258 Cirrhosis of liver without ascites, unspecified hepatic cirrhosis type (K74.60) Active confirmed Plan Of Treatment Pending Test Test Name Order Date LIVER PROFILE 10/13/2021 CBC w/o DIFF 10/13/2021 PROTHROMBIN TIME (PT, INR) 10/13/2021 Future Test Test Name Order Date COLONOSCOPY 12/16/2012 COLONOSCOPY 04/17/2018 COLONOSCOPY 10/10/2021 UPPER GI ENDOSCOPY 10/13/2021 Next Appt Details Provider Name:Tony Harden Oni robert Jr, 02/23/2025 10:40:00 AM, [address] [place] [address], [address], [place], [address], Insurance Providers Payer Name Payer Address Payer Phone Subscriber Number Group Number Insured Name Patient Relationship to Insured Coverage Start Date Coverage End Date [employer] [address] [place], [place] [id number] PRATEEK CORTES Self - patient is the insured Medical (General) History Medical History History ICD Code elevated cholesterol hypertension obstructive sleep apnea, not currently u sing CPAP Cirrhosis noted at the time of laparosco pic cholecystectomy 2019. Surgical History Surgery Date(Month/Year) hernia repair oral surgery gallbladder removal
[2025-01-22 12:31] LABS: Alanine Aminotransferase 23 U/L (0-40); Albumin Level 4.6 g/dL (3.5-5.0); Alkaline Phosphatase 66 U/L (39-117); Anion Gap 10 (12-20); Aspartate Amino Transferase 28 U/L (5-37); Blood Urea Nitrogen 8 mg/dL (9-16); Calcium 9.2 mg/dL (8.4-10.2); Carbon Dioxide 29 mmol/L (22-29); Chloride 108 mmol/L (96-108); Cholesterol 153 mg/dL (<200); Estimated Glomerular Filt Rate > 60; HDL Cholesterol 45 mg/dL (>40); Potassium 3.8 mmol/L (3.3-5.1); Sodium 143 mmol/L (135-145); Total Protein 7.5 g/dL (6.5-8.0); Triglycerides 77 mg/dL (<150)
[2025-01-22 12:33] LABS: Microalbum/Creatinine Ratio Ur 24.0 ug/mg cr (<30)
[2025-01-22 12:42] LABS: Free T4 (Free Thyroxine) 1.08 ng/dL (0.71-1.85); Thyroid Stimulating Hormone 1.17 uIU/mL (0.32-4.0)
[2025-01-22 12:52] LABS: Folate 14.6 ng/mL (> or = 4.0); Vitamin B12 802 pg/mL (200-900)
== END 2025-01-22 11:15 | disposition home or self-care (01) ==
LOC: HO.LAB 11:14
PROVIDERS: PCP Internal Medicine; Visit Provider Internal Medicine
DX: Z12.5 Encounter for screening for malignant neoplasm of prostate (principal); E11.65 Type 2 diabetes mellitus with hyperglycemia; E78.00 Pure hypercholesterolemia, unspecified
CPT/HCPCS: 36415; 80053; 80061; 82043; 82570; 82607; 82746; 83036; 84153; 84439; 84443; 85025

== ENCOUNTER 2025-01-29 10:54 | Outpatient (AMB) | payer OTHER, SELFPAY ==
--- NOTE | 2025-01-29 10:56 | A.OFFPC_ITS ---
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 Accompanied by: Self / Same As Patient Allergies amlodipine (AMLODIPINE) Allergy (Intermediate, Verified 01/29/25 11:20) SWELLING lisinopril (LISINOPRIL) Adverse Reaction (Intermediate, Verified 01/29/25 11:20) Cough Medication List - Last Reconciled 01/29/25 by Rashad Ellison MD cholecalciferol (vitamin D3) 25 mcg PO DAILY losartan-hydrochlorothiazide 100-25 mg 1 tab PO DAILY metoprolol succinate ER 100 mg PO DAILY multivitamin 1 tab PO DAILY simvastatin 40 mg PO QPM Tobacco use date assessed: 01/29/25 Fall risk assessment: No Falls in past year Last assessed Fall Risk: 01/29/25 Dental Screening Dental Screen Date: 01/29/25 Did you have a dental visit in the last 12 months?: Yes Did you have a dental problem in the last 6 months where you did not have access to dental care?: No Was dental information given to patient?: Patient has dentist [facility] Medical History Screening for prostate cancer Cirrhosis Cholelithiasis Obstructive sleep apnea Hypertension Hypercholesterolemia Obesity (BMI 30-39.9) Fatty liver Alcohol abuse Type 2 diabetes mellitus with hyperglycemia Surgical History H/O colonoscopy History of cholecystectomy History of tooth extraction History of inguinal hernia repair Family History Father Gastric cancer Mother Intestinal cancer Paternal Aunt Glioma Paternal Grandmother Liver cancer Social History Housing: House Alcohol intake: former Year quit: 2021 Comment: stopped alcohol October 2021 Patient Tobacco Use Status: Former Tobacco user Tobacco use type: Cigarette Years Smoked: quit 1992 marijuana e-Cigarette/Vaping Use: Never Used Second Hand Smoke Exposure: No Current occupational status: employed Cognitive needs: No Hearing needs: No Vision needs: No Questionnaire PHQ-9 Over the last 2 weeks, how often have you been bothered by any of the following problems? 1. Little interest or pleasure in doing things: not at all 2. Feeling down, depressed, or hopeless: not at all 3. Trouble falling or staying asleep, or sleeping too much: not at all 4. Feeling tired or having little energy: not at all 5. Poor appetite or overeating: not at all 6. Feeling bad about yourself - or that you are a failure or have let yourself or your family down: not at all 7. Trouble concentrating on things, such as reading the newspaper or watching television: not at all 8. Moving or speaking so slowly that other people could have noticed. Or the opposite - being so fidgety or restless that you have been moving around a lot more than usual: not at all 9. Thoughts that you would be better off or of hurting yourself in some way: not at all Total score: 0 Depression Screening Interpretation: Negative Depression Screening Done: Yes Source: Developed by Drs. Nikunj Ramon, Simin Morgan, Yung Ha and colleagues, with an educational mustapha from [employer]. Thrive Questionnaire Date Thrive assessed: 01/29/25 I am a: Patient What is your living situation today?: I have a steady place to live Within the past 12 months, did the food you bought not last and you didn't have the money to get more?: I choose not to answer this question Within the past 12 months, did you worry whether your food would run out before you got money to buy more?: I choose not to answer this question Do you have trouble paying for medicines?: I choose not to answer this question Do you have trouble getting transportation to medical appointments?: No Do you have trouble paying your heating and electricity bill?: No Do you have trouble taking care of your child, family member or friend?: No Do you have trouble with day-to-day activities such as bathing, preparing meals, shopping, managing finances, etc.?: No Are you currently unemployed and looking for a job?: No Are you interested in more education?: No Please select the resources that you would like help with: None Currently or been in a relationship where the following occur: No concerns reported THRIVE Score: 0 AUDIT C Alcohol Use Questionnaire (AUDIT-C) 1. How often do you have a drink containing alcohol?: Never 3. How often do you have six or more drinks on one occasion?: Never Total Score: 0 MOSHE-7 AMB Questionnaire MOSHE-7 Date MOSHE - 7 assessed: 01/29/25 Feeling nervous, anxious, or on edge: 0 = Not at all Not being able to stop or control worryin = Not at all Worrying too much about different things: 0 = Not at all Trouble relaxin = Not at all Being so restless that it is hard to sit still: 0 = Not at all Becoming easily annoyed or irritable: 0 = Not at all Feeling afraid as if something awful might happen: 0 = Not at all Total MOSHE-7 score (0-4 normal; 5-9 mild; 10-14 moderate; 15-21 severe): 0 Source: Developed by Drs. Nikunj Ramon, Simin Morgan, Yung Ha and colleagues, with an educational mustapha from [employer]. Physical exam (Primary Care) Vital Signs: Last Vital Signs Temp 97.3 F 01/29/25 10:58 Pulse 69 01/29/25 10:58 BP 120/78 01/29/25 10:58 Pulse Ox 96 01/29/25 10:58 Oxygen Delivery Method Room Air 01/29/25 10:58 BMI result Body Mass Index 30.7 Tobacco/Smoking Status: Tobacco use Status Tobacco use date assessed 01/29/25 01/29/25 10:58 Patient Tobacco Use Status Former Tobacco user 01/29/25 10:56 Tobacco use type Cigarette 01/29/25 10:56 e-Cigarette/Vaping Use Never Used 01/29/25 10:56 PHQ-9: PHQ-9 Score PHQ-9: Total score 0 01/29/25 11:34 Depression Screening Interpretation: Negative Thrive Assessment: Date of Thrive Assessment Date Thrive assessed 01/29/25 01/29/25 10:58 Currently or been in a relationship where the following occur: No concerns reported Const General: alert; No acute distress Eyes Conjunctivae: conjunctivae normal Resp Auscultation: clear to auscultation bilaterally Cardio Rate: regular rate Rhythm: regular rhythm GI Inspection: Yes normal to inspection Extrem General: Yes normal to inspection and No edema Coding Level of Care Code Est Pt Level 4 (32054) Complex EM visit Add On G2211 Diagnoses Type 2 diabetes mellitus with hyperglycemia, without long-term current use of insulin E11.65 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 Hemoglobin A1c goal of less than 6.5. (2) Hypertension: Code(s): I10 - Essential (primary) hypertension Category: Medical Qualifiers: Hypertension type: essential hypertension Qualified Code(s): I10 - Essential (primary) hypertension Plan: Continue with blood pressure medication. Decrease salt intake and exercise continue with losartan hydrochlorothiazide and metoprolol (3) Hypercholesterolemia: Code(s): E78.00 - Pure hypercholesterolemia, unspecified Category: Medical Plan: Avoid fried foods, chicken skin, eggs, butter margarine, pastries and meat. Be it pork or beef they have a lot of cholesterol LDL goal of less than 100 and triglyceride of less than 150 on simvastatin 40 mg once a day (4) Obesity (BMI 30-39.9): Code(s): E66.9 - Obesity, unspecified Category: Medical Plan: Diet and exercise (5) Knee pain, left: Comment: fall 08/2023 Code(s): M25.562 - Pain in left knee Category: Medical Plan: X-ray done negative Plan History of Present Illness The patient is a 64-year-old male presenting for a follow-up visit and management of chronic conditions. The patient has a history of diabetes mellitus, with recent blood work showing a hemoglobin A1c of 5.9, indicating good control. He reports having a sweet tooth since quitting alcohol, which may affect his blood sugar levels. The patient also has hypertension, managed with losartan, hydrochlorothiazide, and metoprolol. His blood pressure is reported to be stable. Hypercholesterolemia is another condition being managed, with an LDL cholesterol level of 93 mg/dL, which is within the target range. He is on simvastatin 40 mg daily, with a goal of maintaining LDL below 100 mg/dL. The patient has obstructive sleep apnea but cannot tolerate CPAP therapy. He reports left knee pain following a fall in August 2023. An X-ray showed no bony abnormalities, and the knee is not unstable, though pain persists. The patient is considering further evaluation if symptoms do not improve. Health Maintenance - Colon cancer screening up to date as of October 2021 - Shingles vaccination received recently Social History - Reports having a sweet tooth since quitting alcohol Review of Systems - Musculoskeletal: Reports left knee pain following a fall in August 2023. Denies instability of the knee. - Endocrine: Reports having a sweet tooth since quitting alcohol. - Gastrointestinal: Denies constipation and diarrhea when consuming adequate fiber. Physical Exam Results - Labs: Normal blood count, no anemia, normal platelet count, normal sodium and potassium levels, normal renal function, blood sugar 127 mg/dL, hemoglobin A1c 5.9, normal liver function, LDL 93 mg/dL, normal PSA, vitamin B12, folic acid, thyroid levels, and no proteinuria in urine. - Imaging: X-ray of the left knee showing no bony abnormalities. Plan The management plan for diabetes mellitus includes maintaining a hemoglobin A1c goal of less than 6.5, with current levels at 5.9 indicating good control. The patient is advised to monitor his diet, particularly his sugar intake, given his sweet tooth since quitting alcohol. For hypertension, the patient will continue with his current medications: losartan, hydrochlorothiazide, and metoprolol, as his blood pressure is stable. The hypercholesterolemia management plan involves maintaining an LDL goal of less than 100 mg/dL, with the patient currently on simvastatin 40 mg daily. Regarding the left knee pain, the patient is advised to monitor symptoms and consider further evaluation, such as an MRI, if the pain persists or worsens. Patient was informed and verbally consented to the use of an ambient scribe for clinic note documentation during this visit. Discussion Notes During the visit, we discussed the management of diabetes mellitus, emphasizing the importance of maintaining a hemoglobin A1c below 6.5 and monitoring dietary sugar intake. We also reviewed the patient's hypertension and hypercholesterolemia management plans, ensuring that current medications are effective and goals are being met. Regarding the left knee pain, we discussed the possibility of further evaluation with an MRI if symptoms persist, and the importance of monitoring for any changes in stability or pain levels. Patient Instructions - Monitor blood sugar levels and maintain a balanced diet, particularly watching sugar intake. - Continue current medications for hypertension and hypercholesterolemia as prescribed. - Observe left knee for any changes in pain or stability and consider further evaluation if symptoms persist. Medications: Refilled metoprolol succinate ER 100 mg PO DAILY 90 tabs 2RF
[2025-01-29 10:58] VITALS: BP 120/78; PULSE 69; TEMP 36.3; O2SAT 96; BMI 30.7
--- OUTSIDE RECORDS SUMMARY | 2025-01-29 12:27 | XMS_ITS | Patient Health Record ---
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 Name Role Phone Rashad Ellison MD Primary Care Provider Tony Moore Jr [phone] Allergies No Known Allergies Reason For [...] Problem Status W/U Status Risk Notes Problem 427437867 Colon cancer screening (Z12.11) Active confirmed Problem 99021072 Encounter for other preprocedural examination (Z01.818) Active confirmed Problem Cirrhotic (585610353) Cirrhosis (K74.60) Active confirmed Problem 474708694 Long-term curren t use of high risk medication other than anticoagulant (Z79.899) Active confirmed Problem 49949162 Cirrhosis of liver without ascites, unspecified hepatic cirrhosis type (K74.60) Active confirmed Plan Of Treatment Pending Test Test Name Order Date LIVER PROFILE 10/13/2021 CBC w/o DIFF 10/13/2021 PROTHROMBIN TIME (PT, INR) 10/13/2021 Future Test Test Name Order Date COLONOSCOPY 12/16/2012 COLONOSCOPY 04/17/2018 COLONOSCOPY 10/10/2021 UPPER GI ENDOSCOPY 10/13/2021 Next Appt Details Provider Name:Tony Harden Oni robert Jr, 02/23/2025 10:40:00 AM, [address] [place] [address], [address], [place], [address], Insurance Providers Payer Name Payer Address Payer Phone Subscriber Number Group Number Insured Name Patient Relationship to Insured Coverage Start Date Coverage End Date [employer] [address] [place], [place] [id number] [phone] [id number] PRATEEK CORTES Self - patient is the insured Medical (General) History Medical History History ICD Code elevated cholesterol hypertension obstructive sleep apnea, not currently u sing CPAP Cirrhosis noted at the time of laparosco pic cholecystectomy 2019. Surgical History Surgery Date(Month/Year) hernia repair oral surgery gallbladder removal
== END 2025-01-29 11:45 | disposition home or self-care (01) ==
LOC: HO.HMCH 10:55
PROVIDERS: PCP Internal Medicine; Visit Provider Internal Medicine
DX: E11.65 Type 2 diabetes mellitus with hyperglycemia (principal); E66.9 Obesity, unspecified; Z68.30 Body mass index [BMI] 30.0-30.9, adult; I10 Essential (primary) hypertension; E78.00 Pure hypercholesterolemia, unspecified; M25.562 Pain in left knee

== ENCOUNTER 2025-02-23 11:33 | Outpatient (REF) | payer OTHER, SELFPAY ==
[2025-02-23 12:18] LABS: INTERNATIONAL NORM RATIO 1.0 (0.9-1.1); Prothrombin Time 11.3 SEC (10.9-12.4)
[2025-02-23 12:48] LABS: Alanine Aminotransferase 30 U/L (0-40); Albumin Level 4.9 g/dL (3.5-5.0); Alkaline Phosphatase 72 U/L (39-117); Aspartate Amino Transferase 31 U/L (5-37); Total Protein 7.6 g/dL (6.5-8.0)
--- OUTSIDE RECORDS SUMMARY | 2025-02-23 15:52 | XMS_ITS | Patient Health Record ---
Author Organization [facility] Address [address] [place] [address] Care Team Providers Care Roll Filler Name Role Phone Rashad Ellison MD Primary Care Provider Tony Moore Jr Allergies No Known Allergies Results Component Value Reference Range Notes Prothrombin Time INR (Not ye t reviewed by provider) Interpretation: Performing Lab:[facility], [address] [place] [phone] Notes/Report: Prothrombin Time 11.3 10.9-12.4 SEC INTERNATIONAL NORM RATIO 1.0 0.9-1.1 INTERNATIONAL NORMALIZED RATIO (INR) REFERENCE RANGES Reference Range For patients not on anticoagulant therapy: 0.9 - 1.1 INR ranges for oral anticoagulant therapy: For prevention and treatment of venous thrombosis and pulmonary embolism: 2.0 - 3.0 For acute myocardial infarction with aspirin therapy: 2.0 - 3.0 For acute myocardial infarction without aspirin therapy: 3.0 - 4.0 For patients with mechanical prosthetic heart valves: 2.5 - 3.5 Liver Panel (Not yet reviewe d by provider) Interpretation: Performing Lab:[facility], [address] [place] [phone] Notes/Report: Bilirubin Total 1.5 0.0-1.0 mg/dL Bilirubin Direct 0.5 0.0-0.5 mg/dL Aspartate Amino Transferase 31 5-37 U/L Alanine Aminotransferase 30 0-40 U/L Total Protein 7.6 6.5-8.0 g/dL Albumin Level 4.9 3.5-5.0 g/dL Alkaline Phosphatase 72 39-117 U/L Reason For Referral No Information Medications Medication SIG (Take, Route, Frequency, Duration) Notes Start Date End Date Status Simvastatin 40 MG 1 tablet in the even ing Orally Once a day Active Losartan Potassium-HCTZ 100-25 MG 1 tablet Orally Once a day Active Vitamin D 50 MCG (1999) 1 tablet Oral ly Once a day Active Dev Multi Men - 1 Orally QD A ctive Metoprolol Succinate ER 100 MG 1 tablet Orally Once a day Active Immunizations Vaccine Route Administration Date Status Comme nts Influenza Unknown 04/20/2017 Administered Influenza Unknown 04/27/2021 Administered Influenza Unknown 02/26/2024 Administered Social History AUDIT-C (Standard) Question Answer Notes Did you have a drink containing alcohol in the p ast year? No Points 0 Interpretation Negative Section Notes: stopped alcholol as of 04/06 stopped alcholol as of 04/06 stopped alcholol as of 04/06 Problems Problem Type SNOMED Code ICD Code Onset Dates Problem Status W/U Status Risk Notes Problem 775040268 Colon cancer screening (Z12.11) Active confirmed Problem 84377088 Encounter for other preprocedural examination (Z01.818) Active confirmed Problem Cirrhotic (397023861) Cirrhosis (K74.60) Active confirmed Problem 954534776 Long-term curren t use of high risk medication other than anticoagulant (Z79.899) Active confirmed Problem 61270206 Cirrhosis of liver without ascites, unspecified hepatic cirrhosis type (K74.60) Active confirmed Vital Signs Temperature 97.7 degrees Fahrenheit 02/23/2025 Blood pressure diastolic 01 mm Hg 02/23/2025 Height 69 in 02/23/2025 Blood pressure systolic 001 mm Hg 02/23/2025 Weight 210.2 lbs 02/23/2025 BMI 31.04 kg/m2 02/23/2025 Encounters Encounter Location Date Provider Diagnosis [facility] [address] [place] [address] 02/23/2025 Tony Olmstead Jr Colon cancer screening Z12.11 and Cirrhosis of liver without ascites, unspecified hepatic cirrhosis type K74.60 Assessments Encounter Date Diagnosis (ICD Code) Assessment Notes Treatment Notes Treatment Clinical Notes Section Notes 02/23/2025 Colon cancer screening (ICD-10 - Z12.11) 02/23/2025 Cirrhosis of liver without ascites, unspecified hepatic cirrhosis type (ICD-10 - K74.60) Plan Of Treatment Pending Test Test Name Order Date LIVER PROFILE 10/13/2021 LIVER PROFILE 02/23/2025 CBC w/o DIFF 10/13/2021 PROTHROMBIN TIME (PT, INR) 10/13/2021 US ABD 02/23/2025 Prothrombin Time INR 02/23/2025 Prothrombin 27704N 02/23/2025 Liver Panel 02/23/2025 Liver Fibrosis Pnl 02/23/2025 Future Test Test Name Order Date COLONOSCOPY 12/16/2012 COLONOSCOPY 04/17/2018 COLONOSCOPY 10/10/2021 UPPER GI ENDOSCOPY 10/13/2021 UPPER GI ENDOSCOPY 02/23/2025 COLONOSCOPY 02/23/2025 Next Appt Details Provider Name:Tony robert Jr, 03/17/2025 11:40:00 AM, [address] [place] [address] , [place], [place], [phone], Insurance Providers Payer Name Payer Address Payer Phone Subscriber Number Group Number Insured Name Patient Relationship to Insured Coverage Start Date Coverage End Date [employer] [address] [place] [address] [id number] PRATEEK CORTES Self - patient is the insured Medical (General) History Medical History History ICD Code elevated cholesterol hypertension obstructive sleep apnea, not currently u sing CPAP Cirrhosis noted at the time of laparosco pic cholecystectomy 2019. Surgical History Surgery Date(Month/Year) gallbladder removal oral surgery hernia repair
[2025-03-05 07:13] LABS: FIB-ALT 19 U/L (9-46); FIB-Alpha-2-Macroglobulin 350 mg/dL (106-279); FIB-Apolipoprotein A1 154 mg/dL (94-176); FIB-GGT 19 U/L (3-70); FIB-Haptoglobin 140 mg/dL (43-212); FIB-Total Bilirubin 1.3 mg/dL (0.2-1.2); Liver Fibrosis Score 0.66; Liver Fibrosis Stage F3; Nec Inflam Act Grade A0; Nec Inflam Act Score 0.12
== END 2025-02-23 11:34 | disposition home or self-care (01) ==
LOC: HO.LAB 11:33
PROVIDERS: PCP Internal Medicine; Visit Provider Internal Medicine Gastroenterology
DX: Z12.11 Encounter for screening for malignant neoplasm of colon (principal); K74.60 Unspecified cirrhosis of liver
CPT/HCPCS: 36415; 80076; 81596; 85610

== ENCOUNTER 2025-03-17 08:47 | Day surgery (SDC) | payer OTHER, SELFPAY ==
[2025-03-13 13:25] VITALS: BMI 30.7
--- NOTE | 2025-03-13 13:33 | HO.ANESPROP2 ---
Documented by User: Yessenia Denton NP 03/13/25 13:38 HPI - Anesthesia Eval Consult details Narrative: 64 yr old male for upper endoscopy, colonoscopy H/O ETOH abuse, no longer drinking URIEL cannot tolerate CPAP PMFSH Active Problems Active Problems: All Active Problems Knee pain, left (Acute) Low vitamin D level (Acute) Annual physical exam (Acute) Obstructive sleep apnea (Acute) Hypertension (Acute) Hypercholesterolemia (Acute) Obesity (BMI 30-39.9) (Acute) Type 2 diabetes mellitus with hyperglycemia (Acute) Past Medical History Medical History Screening for prostate cancer Cirrhosis Cholelithiasis Obstructive sleep apnea Hypertension Hypercholesterolemia Obesity (BMI 30-39.9) Fatty liver Alcohol abuse Type 2 diabetes mellitus with hyperglycemia Family History Family History Father Gastric cancer Mother Intestinal cancer Paternal Aunt Glioma Paternal Grandmother Liver cancer Family history of problems with anesthesia: No Surgical History Surgical History H/O colonoscopy History of cholecystectomy History of tooth extraction History of inguinal hernia repair History of Problems with Anesthesia: No Social History Social History Housing: House Alcohol intake: former Year quit: 2021 Comment: stopped alcohol October 2021 Patient Tobacco Use Status: Former Tobacco user Tobacco use type: Cigarette Years Smoked: quit 1992 marijuana e-Cigarette/Vaping Use: Never Used Second Hand Smoke Exposure: No Advance Directives: No Advance Directives Information Provided: Yes Current occupational status: employed Cognitive needs: No Hearing needs: No Vision needs: No Meds Allergies Allergy/AdvReac Type Severity Reaction Status Date / Time amlodipine (AMLODIPINE) Allergy Intermediate SWELLING Verified 01/29/25 11:20 lisinopril (LISINOPRIL) AdvReac Intermediate Cough Verified 01/29/25 11:20 Home Medications ?Medication ?Instructions ?Recorded ?Confirmed ?Last Taken ?Type multivitamin 1 tab PO DAILY 04/16/20 03/17/25 Unknown History Exam Height,Weight and Vital Signs: Height 5 ft 9 in Weight 94.347 kg Assessment and Plan Final Anesthetic Review Family History of Problems with Anesthesia: No History of Problems with Anesthesia: No Documented by User: Melinda Nicole MD 03/17/25 09:18 PMFSH Past Medical History Medical History Screening for prostate cancer Cirrhosis Cholelithiasis Obstructive sleep apnea Hypertension Hypercholesterolemia Obesity (BMI 30-39.9) Fatty liver Alcohol abuse Type 2 diabetes mellitus with hyperglycemia Family History Family History Father Gastric cancer Mother Intestinal cancer Paternal Aunt Glioma Paternal Grandmother Liver cancer Surgical History Surgical History H/O colonoscopy History of cholecystectomy History of tooth extraction History of inguinal hernia repair Social History Social History Housing: House Alcohol intake: former Year quit: 2021 Comment: stopped alcohol October 2021 Patient Tobacco Use Status: Former Tobacco user Tobacco use type: Cigarette Years Smoked: quit 1992 marijuana e-Cigarette/Vaping Use: Never Used Second Hand Smoke Exposure: No Advance Directives: No Advance Directives Information Provided: Yes Current occupational status: employed Cognitive needs: No Hearing needs: No Vision needs: No Meds Allergies Allergy/AdvReac Type Severity Reaction Status Date / Time amlodipine (AMLODIPINE) Allergy Intermediate SWELLING Verified 01/29/25 11:20 lisinopril (LISINOPRIL) AdvReac Intermediate Cough Verified 01/29/25 11:20 Home Medications ?Medication ?Instructions ?Recorded ?Confirmed ?Last Taken ?Type multivitamin 1 tab PO DAILY 04/16/20 03/17/25 Unknown History Exam Airway Mallampati Class: II TM Dist: >3cm Neck ROM: Full Heart: rrr Lungs: cta Assessment and Plan Assessment Anesthesia Assessment: Anesthesia Plan Discussed and Chart Reviewed Final Anesthetic Review NPO: Yes ASA Class: III Final Preanesthetic Review: No Changes in Pt Med Stat, Meds/Allgs Chart Reviewed, Consent Obtained/Reviewed and Anes Risks/Benef Reviewed Patient Risk: Intermediate Procedure Risk: Low Anesthetic Plan Anesthetic Plan: MAC: and Agree w/ Assess. and Plan Disposition: Standard PACU
[2025-03-17 09:30] VITALS: BP 144/66; PULSE 54; RESP 18; TEMP 36.3; O2SAT 96
[2025-03-17] MEDS: Lactated Ringers 1,000 ML 100 ML IVCONT (09:30)
--- NOTE | 2025-03-17 10:41 | MHC.SHP ---
Pre-Procedural Eval Section A - 24 Hr Update-Section A only Date of Service: 03/17/25 The patient is an INPATIENT: Yes Changes since office visit: No Cold of Flu in the past 2 weeks, No New Medical Problems, No Changes in Medication and No Patient answered all questions The patient has been examined within 24 hours of the surgical procedure. The History & Physical has been completed within 30 days and I have reviewed it.: Yes Section B - Complete if H&P > 30 days Chief Complaint: Unspecified cirrhosis of liver,screening Allergies: Allergies Allergy/AdvReac Type Severity Reaction Status Date / Time amlodipine (AMLODIPINE) Allergy Intermediate SWELLING Verified 01/29/25 11:20 lisinopril (LISINOPRIL) AdvReac Intermediate Cough Verified 01/29/25 11:20 Plan I have reviewed the history and physical and performed a pertinent physical examination on my patient. No changes have occurred unless specified. Time Spent With Patient Time: Total time managing care of this patient today ____ minutes.
[2025-03-17 11:47] VITALS: BP 99/46; PULSE 62; RESP 12; TEMP 36.7; O2SAT 96
[2025-03-17 12:02] VITALS: BP 123/70; PULSE 65; RESP 16; TEMP 36.7; O2SAT 97
--- NOTE | 2025-03-17 13:28 | OP_ITS ---
DATE OF SERVICE: 03/17/2025 SURGEON: Tony Olmstead MD INDICATIONS: 1. Cirrhosis. 2. Colon cancer screening. PREOPERATIVE DIAGNOSIS: POSTOPERATIVE DIAGNOSIS: PROCEDURE PERFORMED: Upper endoscopy with biopsy, colonoscopy to the terminal ileum with snare polypectomy and biopsy. ESTIMATED BLOOD LOSS: COMPLICATIONS: ANESTHESIA: Monitored anesthesia care. ASSISTANTS: SPECIMENS: DESCRIPTION OF PROCEDURE: A history and physical was performed. The risks and benefits of the procedure were explained to the patient. Informed consent was obtained. The patient was placed in the left lateral decubitus position. The Olympus video gastroscope was introduced into the esophagus, stomach, and duodenum. Examination was performed. The scope was removed. He was repositioned for colonoscopy. A digital rectal exam was performed and was found to be normal. The Olympus pediatric video colonoscope was introduced into the rectum and advanced to the cecum. The cecum was identified by transillumination, palpation, and identification of ileocecal valve. Examination was performed. The scope was removed. He tolerated both procedures well, and was returned to recovery area in stable condition. FINDINGS: Upper endoscopy: 1. Esophagus: The esophagus was normal. There were no varices. 2. Stomach: The stomach showed no evidence of masses or ulcers. Antral biopsies were obtained to rule out H pylori. 3. Duodenum: The bulb and 2nd portion were normal. Colonoscopy: The terminal ileum was examined and appeared normal. The visualized colonic mucosa was normal. The quality of the prep was good. Multiple polyps were identified, 2 in the cecum were removed with a snare, 1 in piecemeal manner, and recovered via suction. There was a 3rd polyp, less than 5 mm, which was cauterized using the tip of the snare. The remainder of the colon showed 3 other polyps; 1 in the right colon, 1 at 60 cm, and 1 in the rectum, which were removed with a combination of snare polypectomy and cautery, all were less than 10 mm. Retroflexed examination was normal. Internal hemorrhoids were noted. IMPRESSION: Colon polyps, normal upper endoscopy. RECOMMENDATION: Follow up the biopsy results. MD TADEO Delgado/KARIL / [phone]
== END 2025-03-17 12:55 | disposition home or self-care (01) ==
PROVIDERS: PCP Internal Medicine; Visit Provider Internal Medicine Gastroenterology
PROC: (CPT 45380; principal; 2025-03-17 10:30)
DX: Z12.11 Encounter for screening for malignant neoplasm of colon (principal); K74.60 Unspecified cirrhosis of liver; D12.2 Benign neoplasm of ascending colon; D12.0 Benign neoplasm of cecum; D12.4 Benign neoplasm of descending colon; K64.8 Other hemorrhoids; Z80.0 Family history of malignant neoplasm of digestive organs; Z83.710 Family history of adenomatous and serrated polyps
CPT/HCPCS: 45380; 45385; 88305; 88342; J2003; J2250; J2704

== ENCOUNTER 2025-05-27 08:09 | Outpatient (REF) | payer OTHER, SELFPAY ==
--- OUTSIDE RECORDS SUMMARY | 2025-03-17 05:50 | XMS_ITS ---
Author Organization [facility] Address [address] [place] [address] Care Team Providers Care Flight Data Technician Name Role Phone Rashad Ellison MD Primary Care Provider Tony Moore Jr [phone] REASON FOR VISIT screening,cirrhosis Encounters Encounter Location Date Provider Diagnosis [facility] [address] [place] [phone] 03/17/2025 Tony Olmtsead Jr Plan Of Treatment No Information Progress Notes * PRATEEK CORTESDOB:1960 ( 64 yo M)Acc No.[id number]:03/17/2025 EGD and COL/MAC Patient: PRATEEK ISAACS Provider: Elodia Olmstead MD :1960 A ge:64 Y S ex:Male Date:03/17/2025 Address:[address] [place], [place] [id number] Pcp:Rashad Ellison MD Subjective: * Chief Complaints: * S creening,cirrhosis Billing Information: * Procedure Codes: * The named appointment provid er may or may not be the originator of this progress note, and it is not deemed complete until electronically signed by the appointment provider. Sign off status: Pending * Provider: Elodia Olmstead MD Date: Generated for Printi ng/Faxing/eTransmitting on: 2024 08:15 AM EST
--- NOTE | ~2025-05-27 | US_ITS ---
CLINICAL HISTORY: cirrhosis US abdomen complete Comparison: None Findings: Visualized pancreas is normal. Aorta and inferior vena cava are normal caliber. The liver is normal in size and echotexture. A small right lobe cyst measuring 9 x 9 x 9 mm, and left lobe cyst measuring 12 x 10 x 7 mm are present. No other focal lesions. Right lobe length is 14.7 cm. There is no intrahepatic bile duct dilatation. The common duct is 3-4 mm in diameter. The gallbladder is surgically absent. There is no sonographic Gilbert sign. The main portal vein is antegrade The right kidney is normal, 12.3 cm in length. A small 3 mm shadowing interpolar echogenic focus suggest nonobstructing calculus. The left kidney is normal, 12.2 cm in length. An exophytic upper pole cyst measuring 19 x 15 x 14 mm, and small lower pole cyst measuring 10 x 9 x 8 mm are noted, these appear grossly simple. The spleen is normal, 11.0 cm in length. There may be trace free fluid in the right upper quadrant. Impression: 1. Prior cholecystectomy. 2. Small liver and left renal cysts. Likely nonobstructing right renal calculus. 3. Equivocal trace free fluid within right upper quadrant. This document has been electronically signed by: Leon Osborne MD on 05/27/2025 16:04:48
--- OUTSIDE RECORDS SUMMARY | 2025-05-27 08:15 | XMS_ITS | Patient Health Record ---
Author Organization [facility] Address [address] [place] [address] Care Team Providers Care Color Making Supervisor Name Role Phone Rashad Ellison MD Primary Care Provider Tony Moore Jr [phone] Allergies No Known Allergies Results Component Value Reference Range Flag Notes Prothrombin Time INR Reviewed date:03/03/2025 03:57:04 PM Interpretation: Performing Lab:[facility], [address] [place] [phone] Notes/Report: Prothrombin Time 11.3 10.9-12.4 SEC N INTERNATIONAL NORM RATIO 1.0 0.9-1.1 N INTERNATIONAL NORMALIZED RATIO (INR) REFERENCE RANGES Reference [...] heart valves: 2.5 - 3.5 Liver Panel Reviewed date:03/03/2025 03:56:58 PM Interpretation: Performing Lab:[facility], [address] [place] [phone] Notes/Report: Bilirubin Total 1.5 0.0-1.0 mg/dL H Bilirubin Direct 0.5 0.0-0.5 mg/dL N Aspartate Amino Transferase 31 5-37 U/L N Alanine Aminotransferase 30 0-40 U/L N Total Protein 7.6 6.5-8.0 g/dL N Albumin Level 4.9 3.5-5.0 g/dL N Alkaline Phosphatase 72 39-117 U/L N Liver Fibrosis Pnl Reviewed date:03/11/2025 08:20:46 AM Interpretation: Performing Lab:[facility], [address] [place] [phone] Notes/Report: Liver Fibrosis Score 0.66 Liver Fibrosis Stage F3 Liver Fibrosis Interpretation SEE NOTE advanced fibrosis Fibro Test Score (f) Metavir Score f>=0 and f<=0.21 : F0 (no fibrosis) f>0.21 and f<=0.27 : F0-F1 (no fibrosis) f>0.27 and f<=0.31 : F1 (minimal fibrosis) f>0.31 and f<=0.48 : F1-F2 (minimal fibrosis) f>0.48 and f<=0.58 : F2 (moderate fibrosis) f>0.58 and f<=0.72 : F3 (advanced fibrosis) f>0.72 and f<=0.74 : F3-F4 (advanced fibrosis) f>0.74 and f<=1.00 : F4 (severe fibrosis) Nec Inflam Act Score 0.12 Nec Inflam Act Grade A0 Nec Inflam Act Interpretation SEE NOTE no activity ActiTest Score (a) Metavir Score a>=0 and a<=0.17 : A0 (no activity) a>0.17 and a<=0.29 : A0-A1 (no activity) a>0.29 and a<=0.36 : A1 (minimal activity) a>0.36 and a<=0.52 : A1-A2 (minimal activity) a>0.52 and a<=0.60 : A2 (significant activity) a>0.60 and a<=0.62 : A2-A3 (significant activity) a>0.62 and a<=1.00 : A3 (severe activity) PIP-Eckjx-1-Macroglobulin 350 106-279 mg/dL A FIB-Haptoglobin 140 43-212 mg/dL FIB-Apolipoprotein A1 154 94-176 mg/dL FIB-Total Bilirubin 1.3 0.2-1.2 mg/dL A FIB-GGT 19 3-70 U/L FIB-ALT 19 9-46 U/L Reference ID [id number] Footnote SEE NOTE The reliability of results is dependent on compliance with the preanalytical and analytical conditions recommended by [employer]. The tests have to be deferred for: acute hemolysis, acute hepatitis, acute inflammation, extra hepatic cholestasis. The advice of a specialist should be sought for interpretation in chronic hemolysis and Gilbert's syndrome. The test interpretation is not validated in liver transplant patients. Isolated extreme values of one of the components should lead to caution in interpreting the results. In case of discordance between a biopsy result and a test, it is recommended to seek the advice of a specialist. The causes of these discordances could be due to a flaw of the test or to a flaw in the biopsy: i.e. a liver biopsy has a 33% variability rate for one fibrosis stage. FibroTest is interpretable for chronic hepatitis B and C, alcoholic and non alcoholic steatosis. ActiTest is interpretable for chronic hepatitis B and C. The performance characteristics have been [facility]. It has not been cleared or approved by the U.S. Food and Drug Administration. Performance characteristics refer to the analytical performance of the test. [employer], the associated logo, [employer] and all associated [employer] are the registered trademarks of [employer]. All third [employer]an [employer] - (R) and (TM) - are the property of their respective owners. (C) [id number] [employer]. All rights reserved. THIS TEST WAS PERFORMED AT: [employer] [facility] [place] [address] [place] [address] GISSEL OMER MD,PHD,JOYCE Pathology Reviewed date:03/23/2025 11:18:54 AM Interpretation: Performing Lab:[facility], [address] [place] [phone] Notes/Report: Reason For Referral No Information Medications Medication SIG (Take, Route, Frequency, Duration) Notes Start Date End Date Status Simvastatin 40 MG Tablet 1 tablet in the evening Orally Once a day Active Losartan Potassium-HCTZ 100-25 MG Tablet 1 tablet Orally Once a day Active Vitamin D 50 MCG (1999 [place]) Tablet 1 tablet Orally Once a day Active Dev Multi Men - Tablet Extended Release 1 Orally QD Active Metoprolol Succinate ER 100 MG Tablet Extended Release 24 Hour 1 tablet Orally Once a day Active Immunizations Vaccine Route Administration Date Status Comme nts Influenza Unknown 04/20/2017 Administered Influenza Unknown 04/27/2021 Administered Influenza Unknown 02/26/2024 Administered Social History Social History Drug/Alcohol: Social Info Question Answer Notes AUDIT-C (Standard) Did you have a drink containing alcohol in the past year? No Points 0 Interpretation Negative Additional Details Category Social Info Options Details Miscellaneous: Marital status: Occupation: [employer] Section Notes: stopped alcholol as of 04/06 stopped alcholol as of 04/06 stopped alcholol as of 04/06 Problems Problem Type SNOMED Code ICD Code Onset Dates Problem Status W/U Status Risk Notes Problem Colon cancer screening (523800530) Colon cancer screening (Z12.11) Active confirmed Problem Pre-procedure evaluation check (319959591) Encounter for other preprocedural examination (Z01.818) Active confirmed Problem Cirrhotic (818487431) Cirrhosis (K74.60) Active confirmed Problem Long-term current use of drug therapy (825765025) Long-term current use of high risk medication other than anticoagulant (Z79.899) Active confirmed Problem Cirrhosis - non-alcoholic (926985603) Cirrhosis of liver without ascites, unspecified hepatic cirrhosis type (K74.60) Active confirmed Vital Signs Temperature 97.7 degrees Fahrenheit 02/23/2025 Blood pressure diastolic 01 mm Hg 02/23/2025 Height 69 in 02/23/2025 Blood pressure systolic 001 mm Hg 02/23/2025 Weight 210.2 lbs 02/23/2025 BMI 31.04 kg/m2 02/23/2025 Encounters Encounter Location Date Provider Diagnosis [facility] [place] Outpatient [address] [place] [phone] 03/17/[address] [facility] [address] [place] [phone] 02/23/2025 Tony Olmstead Jr Colon cancer screening Z12.11 and Cirrhosis of liver without ascites, unspecified hepatic cirrhosis type K74.60 [facility] [address] [place] [phone] 03/12/[address] [facility] [address] [place] [phone] 03/23/2025 Tony Olmstead Assessments Encounter Date Diagnosis (ICD Code) Assessment Notes Treatment Notes Treatment Clinical Notes Section Notes 02/23/2025 Colon cancer screening (ICD-10 - Z12.11) We discussed cirrhosis today. We discussed complications. We discussed alcohol avoidance. We recommended further evaluation with imaging of the liver, lab work, and upper endoscopy and colonoscopy. He understands risks and benefits of both procedures and agrees to proceed. This will be scheduled at his convenience. 02/23/2025 Cirrhosis of liver without ascites, unspecified hepatic cirrhosis type (ICD-10 - K74.60) We discussed cirrhosis today. We discussed complications. We discussed alcohol avoidance. We recommended further evaluation with imaging of the liver, lab work, and upper endoscopy and colonoscopy. He understands risks and benefits of both procedures and agrees to proceed. This will be scheduled at his convenience. Plan Of Treatment Pending Test Test Name Order Date LIVER PROFILE 02/23/2025 LIVER PROFILE 10/13/2021 CBC w/o DIFF 10/13/2021 PROTHROMBIN TIME (PT, INR) 10/13/2021 US ABD 02/23/2025 Prothrombin [id number] 02/23/2025 Future Test Test Name Order Date COLONOSCOPY 12/16/2012 COLONOSCOPY 04/17/2018 COLONOSCOPY 10/10/2021 UPPER GI ENDOSCOPY 10/13/2021 UPPER GI ENDOSCOPY 02/23/2025 COLONOSCOPY 02/23/2025 Insurance Providers Payer Name Payer Address Payer Phone Subscriber Number Group Number Insured Name Patient Relationship to Insured Coverage Start Date Coverage End Date [employer] [address] [place] [address] [phone] [id number] PRATEEK CORTES Self - patient is the insured Medical (General) History Medical History History ICD Code elevated cholesterol hypertension obstructive sleep apnea, not currently u sing CPAP Cirrhosis noted at the time of laparosco pic cholecystectomy 2019. Surgical History Surgery Date(Month/Year) hernia repair oral surgery gallbladder removal
== END 2025-05-27 08:10 | disposition home or self-care (01) ==
LOC: HO.US 08:09
PROVIDERS: PCP Internal Medicine; Visit Provider Internal Medicine
DX: Z12.11 Encounter for screening for malignant neoplasm of colon (principal); K74.60 Unspecified cirrhosis of liver
CPT/HCPCS: 76700

== ENCOUNTER → 2025-05-27 08:31 | Outpatient (BNV) | payer OTHER, SELFPAY | PROVIDERS: PCP Internal Medicine; Visit Provider Radiology Diagnostic Radiology | DX: K74.60 Unspecified cirrhosis of liver (principal); N28.1 Cyst of kidney, acquired; K76.89 Other specified diseases of liver; Z90.49 Acquired absence of other specified parts of digestive tract | CPT/HCPCS: 76700 ==